=== PATIENT | female | born 1950 | race Caucasian/White ===

== ENCOUNTER 2019-05-24 07:31 | Outpatient (CLI) | payer MEDICARE, SELFPAY ==
--- NOTE | ~2019-05-24 | CT_ITS ---
EXAMINATION: CTA neck EXAM DATE: 05/24/2019 08:05 INDICATION: Dizziness. Left subclavian stenosis. TECHNIQUE: Spiral CTA of the carotid arteries was performed with intravenous injection 100cc of Omnip aque 350. Axial, coronal, sagittal reformatted images reviewed. Additional reformatted images creat ed on dedicated 3-D workstation. NASCET comparable standard used to assess the degree of arterial st enosis. The dose-length product (DLP) for this examination was 474.01 mGy-cm. The exposure was tail ored according to patient size (auto mA exposure control), and iterative reconstruction (ASIR) was us ed as additional dose reduction technique. There is no prior study for comparison. FINDINGS: There is a left subclavian arterial stent, with small amount of intimal thickening suspecte d in side, 30% stenosis. Left vertebral artery arises from subclavian after the stent, is widely rogers nt. The vertebral arteries are essentially codominant (right side is slightly larger and also patent) . There is mild to moderate bilateral carotid atherosclerosis, with 30% stenosis on the right and 20% stenosis on the left. There is pacemaker/AICD device. Cervical spondylosis. Fused C6-C7 vertebral bodies. Small left maxill deborah sinus mucous retention cyst inferiorly. IMPRESSION: 1. Left subclavian origin stent with mild intimal thickening, 30% stenosis. 2. Right carotid bulb 30% stenosis. 3. Left carotid bulb 20% stenosis. Reviewed, dictated and finalized at location B. UET COOK
[2019-05-24 08:00] LABS: Blood Urea Nitrogen 15 mg/dL (8-26); Estimated Glomerular Filt Rate > 60
[2019-05-24 09:35] LABS: Alanine Aminotransferase 21 U/L (4-35); Albumin Level 3.3 g/dL (3.5-5.1); Alkaline Phosphatase 95 U/L (38-126); Aspartate Amino Transferase 22 U/L (14-36); Bilirubin,Total 0.2 mg/dL (0.2-1.3); Blood Urea Nitrogen 15 mg/dL (7-17); Calcium 8.5 mg/dL (8.4-10.2); Carbon Dioxide 28 mmol/L (22-30); Chloride 101 mmol/L (98-107); Estimated Glomerular Filt Rate > 60; Glucose 94 mg/dL (65-105); Potassium 3.5 mmol/L (3.4-5.0); Sodium 139 mmol/L (137-145)
== END 2019-05-24 07:32 | disposition home or self-care (01) ==
LOC: ANHIMG 07:40
PROVIDERS: PCP Family Medicine; Visit Provider Internal Medicine Cardiovascular Disease
DX: I77.1 Stricture of artery (principal); I65.23 Occlusion and stenosis of bilateral carotid arteries; E78.1 Pure hyperglyceridemia
CPT/HCPCS: 36415; 70498; 80053; 84443; Q9967

== ENCOUNTER 2019-11-29 07:15 | Outpatient (CLI) | payer MEDICARE, SELFPAY ==
[2019-11-29 08:11] LABS: Cholesterol 135 mg/dL (0-200); HDL Direct 39 mg/dL; Triglycerides 100 mg/dL (<150)
[2019-11-29 08:22] LABS: LDL Cholesterol Direct 85 mg/dL
== END 2019-11-29 07:16 | disposition home or self-care (01) ==
PROVIDERS: Visit Provider Internal Medicine Cardiovascular Disease
DX: E78.1 Pure hyperglyceridemia (principal)
CPT/HCPCS: 36415; 80061

== ENCOUNTER 2020-04-22 02:32 | Outpatient (CLI) | payer MEDICARE, SELFPAY ==
[2020-04-22 19:47] LABS: SARS-CoV-2 RNA PCR Negative
== END 2020-04-22 02:33 | disposition home or self-care (01) ==
LOC: ANHCOVIDDT 02:32
PROVIDERS: Family Medicine; Visit Provider Specialist
DX: Z01.812 Encounter for preprocedural laboratory examination (principal); Z20.828 Contact with and (suspected) exposure to other viral communicable diseases; R68.89 Other general symptoms and signs
CPT/HCPCS: 87635; C9803; U0003

== ENCOUNTER 2020-04-25 00:57 | Day surgery (SDC) | payer MEDICARE, SELFPAY ==
[2020-04-24 13:36] VITALS: BMI 27.1
[2020-04-25 07:15] VITALS: BP 119/56; PULSE 61; RESP 15; TEMP 36.6; O2SAT 96; BMI 27.1
[2020-04-25 07:23] LABS: Basophils Percent Auto 0.7 % (0.2-1.2); Eosinophils Absolute Auto 0.1 K/mm3 (0-0.3); Eosinophils Percent Auto 2.6 % (0-4.4); Hematocrit 38.6 % (37.0-47.0); Hemoglobin 12.8 g/dL (12.0-15.0); Immature Granulocyte Absolute 0.02 K/mm3 (0.00-0.031); Immature Granulocyte Percent A 0.4 % (0-0.5); Lymphocytes Absolute Auto 1.69 K/mm3 (0.9-3.2); Lymphocytes Percent Auto 31.1 % (18.3-44.2); Mean Corpuscular HGB Conc 33.2 g/dl (32-36); Mean Corpuscular Hemoglobin 29.2 pg (26-34); Mean Corpuscular Volume 88.1 fl (80-100); Monocytes Absolute Auto 0.6 K/mm3 (0.1-0.6); Monocytes Percent Auto 10.3 % (2.6-8.5); Neutrophils Percent Auto 54.9 % (45.5-73.1); Platelet Count Result 259 k/mm3 (150-375); Red Blood Count 4.38 M/mm3 (4.2-5.4); Red Cell Distribution Width 12.9 % (11.5-14.5); White Blood Count 5.4 K/mm3 (4.5-10.0)
[2020-04-25 07:33] LABS: INR 0.9; Prothrombin Time 13.1 Seconds (11.1-14.7)
[2020-04-25 07:36] LABS: Anion Gap 8 mmol/L (8-16); Blood Urea Nitrogen 14 mg/dL (7-17); Calcium 9.2 mg/dL (8.4-10.2); Carbon Dioxide 26 mmol/L (22-30); Chloride 108 mmol/L (98-107); Estimated CRCL calculation 55 ml/min; Estimated Glomerular Filt Rate > 60; Glucose 117 mg/dL (65-105); Potassium 3.9 mmol/L (3.4-5.0); Sodium 142 mmol/L (137-145)
--- NOTE | 2020-04-25 08:34 | WPDMODSED ---
Moderate Sedation Note-Pt Data Patient Data Diagnosis: Pacemaker at [facility] Present Complaint: 70-year-old woman with complete heart block as a dual-chamber pacemaker implanted 10 years ago. Device found to be at [facility] and admitted today for a generator change Procedure to be performed/Plan: Pacemaker generator change Allergies Allergy/AdvReac Type Severity Reaction Status Date / Time Antihistamines - Alkylamine Allergy Unknown Unknown Verified 01/31/20 14:13 codeine Allergy Unknown Unknown Verified 01/31/20 14:13 cyclobenzaprine Allergy Unknown Unknown Verified 01/31/20 14:13 No Known Allergies Allergy Verified 01/31/20 14:13 Home Medications Medication Instructions Recorded Confirmed Type amlodipine 10 mg tablet 10 mg PO DAILY 04/24/19 04/24/20 History aspirin 81 mg tablet,delayed 81 mg PO DAILY 04/24/19 04/24/20 History release atorvastatin 20 mg tablet 20 mg PO DAILY 04/24/19 04/24/20 History carvedilol 12.5 mg tablet 12.5 mg PO Q12H 04/24/19 04/24/20 History duloxetine 60 mg capsule,delayed 60 mg PO DAILY #90 cap 01/31/20 04/24/20 Rx release immune globulin(hum),capr(IgG) 10 % IVPB WEEKLY 01/31/20 01/31/20 History % intravenous solution lisinopril 20 mg tablet 10 mg PO DAILY tablet 01/31/20 04/24/20 History ropinirole 2 mg tablet 2 mg PO .hs #30 tablet 03/04/20 04/24/20 Rx Sedation/Anesthesia: No previous sedation/anesthesia problems (including family history). [facility] Past Medical History Medical History (Updated 04/24/20 @ 10:43 by Love Love) DJD of shoulder Encounter for checking and testing of cardiac pacemaker pulse generator [battery] Osteoarthritis Pacemaker Restless leg syndrome Rotator cuff tear Rotator cuff tendonitis SLAP tear of shoulder Trigger finger Vision abnormalities Surgical History Surgical History H/O heart artery stent History of carpal tunnel repair Family History Family History Mother Family history of malignant neoplasm Family history of malignant neoplasm of breast in first degree relative Sibling Family history of lupus erythematosus Other Family history of lung cancer Social History Social History Smoking status: Former smoker Alcohol intake: current Mod Sed Physical Exam Physical Exam Pre Procedural Exam: Normal: Appearance, Throat, Airway, Lungs, Heart Size, Heart Rate, Heart Rhythm and Extremities Hours since solid foods: 12 Hours since liquid intake: 12 Internal Medicine - PN: Obj Da Vital Signs Vital Signs: Vital Signs - 24 hr 04/25/20 07:15 Temperature 36.6 C Pulse Rate 61 Respiratory Rate 15 Blood Pressure 119/56 L Pulse Oximetry 96 Labs CBC & Chem 7: 04/25/20 07:06 04/25/20 07:06 Labs: Laboratory Results - last 24 hr 04/25/20 04/25/20 04/25/20 07:06 07:06 07:06 WBC 5.4 RBC 4.38 Hgb 12.8 Hct 38.6 MCV 88.1 MCH 29.2 MCHC 33.2 RDW 12.9 Plt Count 259 MPV 10.0 Immature Gran % (Auto) 0.4 Neut % (Auto) 54.9 Lymph % (Auto) 31.1 Morrill % (Auto) 10.3 H Eos % (Auto) 2.6 Baso % (Auto) 0.7 Lymph # (Auto) 1.69 Morrill # (Auto) 0.6 Eos # (Auto) 0.1 Baso # (Auto) 0.0 Abs Immat Gran (auto) 0.02 Absolute Neuts (auto) 3.0 Absolute Nucleated RBC 0.0 Nucleated RBC % 0.0 PT 13.1 INR 0.9 Sodium 142 Potassium 3.9 Chloride 108 H Carbon Dioxide 26 Anion Gap 8 BUN 14 Creatinine 0.80 Estim Creat Clear Calc 55 Estimated GFR > 60 Glucose 117 H Calcium 9.2 ASA Classification/Sedation ASA Classification/Sedation ASA Class: II Emergent: No Risks: Risks, benefits and alternatives explained and patient/family accepted plan for sedation. Patient re-evaluated immediately prior to sedation.
--- NOTE | 2020-04-25 10:13 | ECG_ITS ---
Measurements Intervals [place] Rate: 60 P: 120 TX: 252 QRS: 12 QRSD: 149 T: 13 QT: 498 QTc: 498 Interpretive Statements ELECTRONIC ATRIAL PACEMAKER ELECTRONIC VENTRICULAR PACEMAKER NO FURTHER INTERPRETATION IS POSSIBLE ATYPICAL ECG Electronically Signed On 04-25-2020 14:18:23 YARN WASHER by Fabiano Mobley D.O.
--- NOTE | 2020-04-25 10:15 | WPDCARDPROC ---
Cardiac Cath Procedure Note Date of procedure:: 04/25/20 Performing physician:: Sd Aguilar MD Indication:: pacemaker at [facility] Brief clinical history:: this is a 70-year-old woman scheduled today for pacemaker generator change. She has a chronically implanted dual-chamber device for treatment of complete heart block. She is pacemaker dependent. Her ventricular lead threshold is elevated but stable and chronic at this level. For this reason and because of the Coronavirus pandemic and the desire to discharge her today the decision has been made to perform a simple generator change rather than perform a lead revision which would require hospitalization. Procedure Procedure performed:: Temporary transvenous pacemaker explantation of depleted pulse generator implantation of new pulse generator Sedation/Medication given:: fentanyl 50 mg Versed 4 mg case start time 9:17 a.m. case end time 10:10 a.m. sedation provided by Arabella Woodward RN, trained observer Access site:: right femoral vein for temporary lead Estimated blood loss:: less than 10 cc Procedure note:: patient was brought to the cardiac catheterization lab postabsorptive state the right femoral triangle was prepared and draped in the usual fashion and anesthesia was provided with 1% lidocaine. Following this the femoral vein was punctured and a 6 Gambian vascular sheath was placed. After this I used a 5 Gambian balloon tipped temporary pacing wire to protect the rhythm was placed in the right ventricular apex and good pacing and sensing performance was demonstrated. Following this I broke scrub and recent drug for the thoracic portion of the procedure. The left anterior chest wall and the site of the chronically implanted device was prepped and draped the usual sterile fashion. Anesthesia was provided in this area of 1% lidocaine infiltrated locally. The plasma blade was then used to create an incision over the pocket and to incise the subcutaneous fat as well as the fibrous capsule of the chronically implanted device. The chronically implanted pacemaker in the attached leads were then removed and were visually intact and unremarkable in appearance. The atrial and ventricular leads were disconnected from the device using the torque wrench in implanted into the new generator. The temporary pacemaking device provided good rhythm protection with a backup rate of 50 beats per minute as the device was disconnected in this pacemaker dependent patient. Following this the pocket was irrigated with Ancef infused saline and the device was placed into the chronic pocket. The pocket was then closed in layers using 3 0 Vicryl in her right interrupted fashion for the subcutaneous tissue in 4 0 Vicryl in a running subcuticular fashion for the skin. The wound was dressed with an Aquacel dressing. She received intravenous Ancef prior to the procedure. Patient was taken to the holding area for recovery there were no apparent procedural complications Findings:: the explanted pacemaker device is a [employer] dual-chamber pacemaker [employer] DR RODRIGUEZ 2210. serial number [id number]. the new pacemaker generator is [employer] MRI 2272. serial number [id number]. device is programmed in the DDD mode lower rate limit 60 upper rate limit 115 AV delay 250/ 225 millisecond chronic atrial lead is a [employer] Optisense 1999/46 cm serial number [id number]. originally implanted May 18, 2011 . atrial sensing P-waves is at 3.8 mV threshold 0.5 volts at 0.4 milliseconds impedance 410 Ohms the chronic ventricular lead is a [employer] Tendril STS 2088TC/52cm. there are no R-waves to sense threshold is 1.125 volts at 1.5 milliseconds impedance 690 Ohms Conclusion:: 1. successful implantation of a temporary vent transvenous pacing lead from the right femoral vein to protect the rhythm during generator change in this pacemaker dependent patient 2. successful explant
[2020-04-25 10:45] VITALS: BP 135/62; PULSE 67; RESP 15; TEMP 36.1; O2SAT 95
[2020-04-25 11:00] VITALS: BP 127/59; PULSE 60; RESP 15; O2SAT 97
[2020-04-25 11:15] VITALS: BP 124/59; PULSE 58; RESP 20; O2SAT 95
[2020-04-25 11:30] VITALS: BP 138/64; PULSE 60; RESP 15; O2SAT 98
== END 2020-04-25 12:30 | disposition home or self-care (01) ==
PROVIDERS: Visit Provider Specialist
PROC: 0JPT0PZ Removal of Cardiac Rhythm Related Device from Trunk Subcutaneous Tissue and Fascia, Open Approach (ICD-10-PCS; CPT 33228; principal; 2020-04-25 08:30)
DX: Z45.010 Encounter for checking and testing of cardiac pacemaker pulse generator [battery] (principal); I44.2 Atrioventricular block, complete; G25.81 Restless legs syndrome; Z79.82 Long term (current) use of aspirin; Z95.5 Presence of coronary angioplasty implant and graft; Z87.891 Personal history of nicotine dependence
CPT/HCPCS: 33228; 36415; 80048; 85025; 85610; C1785; C1883; C1894; J0690; J1644; J2250; J3010; J7040

== ENCOUNTER → 2020-10-24 07:50 | Outpatient (CLI) | payer MEDICARE, SELFPAY ==
[2020-10-24 19:23] LABS: SARS-CoV-2 RNA PCR Negative
== END ==
PROVIDERS: Visit Provider Orthopaedic Surgery
DX: Z01.812 Encounter for preprocedural laboratory examination (principal); Z20.822 Contact with and (suspected) exposure to COVID-19
CPT/HCPCS: C9803; U0003; U0005

== ENCOUNTER 2020-10-27 00:39 | Day surgery (SDC) | payer MEDICARE, SELFPAY ==
[2020-10-17 09:16] VITALS: BMI 26.9
[2020-10-27] MEDS: ACETAMINOPHEN 500 MG TABLET 1000 MG PO (12:19)
[2020-10-27] MEDS: LACTATED RINGERS 1,000 ML 30 ML IV CONT (12:35)
[2020-10-27] MEDS: KETOROLAC 15 MG/ML VIAL (*BKC) IV PUSH (12:36)
--- NOTE | 2020-10-27 13:06 | WPDANESEPPF ---
Anes - Initial Pre Proc Eval Procedure: Operation Date: 10/27/20 14:00 Proposed Procedures p Right Third Trigger Finger Release - Cas Saavedra MD Date/Time: 10/27/20 13:06 Surgeon: Cas Saavedra MD Pre Op Diagnosis: right 3rd trigger finger Patient Data Age: 70 Gender: F Height: 1.6 m Weight: 68.8 kg Allergies Allergy/AdvReac Type Severity Reaction Status Date / Time codeine Allergy Mild Nausea Verified 10/27/20 12:16 Antihistamines - Alkylamine AdvReac Mild ANXIOUS/SHRUTHI Verified 10/27/20 12:16 TATED Home Medications Medication Instructions Recorded Confirmed Type aspirin 81 mg tablet,delayed 81 mg PO HS 04/24/19 10/27/20 History release atorvastatin 20 mg tablet 20 mg PO HS 04/24/19 10/27/20 History carvedilol 12.5 mg tablet 12.5 mg PO Q12H 04/24/19 10/27/20 History lisinopril 20 mg tablet 20 mg PO HS tablet 04/30/20 10/27/20 History duloxetine [Cymbalta] 60 mg PO HS 10/17/20 10/27/20 History ropinirole 2 mg PO HS 10/17/20 10/27/20 History Patient hx anesthesia problems: post op nausea/vomiting Family hx anesthesia problems: none PMFSH Past Medical History Medical History (Updated 10/27/20 @ 08:16 by Amauri Cooper DO) Anxiety BMI 27.0-27.9,adult CAD (coronary artery disease) Depression DJD of shoulder Encounter for checking and testing of cardiac pacemaker pulse generator [battery] Hyperlipidemia Hypertension BEATRIZ (obstructive sleep apnea) Osteoarthritis Pacemaker PONV (postoperative nausea and vomiting) Restless leg syndrome Rotator cuff tear Rotator cuff tendonitis SLAP tear of shoulder Vision abnormalities Zoster Surgical History Surgical History (Updated 10/27/20 @ 08:16 by Amauri Cooper DO) H/O heart artery stent x2, 2010 History of carpal tunnel repair Family History Family History Mother Family history of malignant neoplasm Family history of malignant neoplasm of breast in first degree relative Sibling Family history of lupus erythematosus Other Family history of lung cancer Social History Social History Smoking packs per day: 1.5 Smoking cigarettes per day: 30.0 Years smoked: 40 Smoking pack-years: 60.00 Smoking status: Former smoker Smoking end date: 12/04/10 Alcohol intake: never Substance use: never Substance use type: does not use Living arrangements: with family Additional living arrangements comments: HUSB Gender identity (if verbalized by the patient): Female Spiritual care concerns: No Anes - Eval Final PreProcedure Day of Procedure 10/27/20 13:06 Patient weight: overweight Heart: regular rate and rhythm Lungs: clear to auscultation and normal air movement Airway: Mallampati scale class II Neurological: alert and oriented Last oral intake: >/= 8 hours ASA classification: III Emergent: no Anesthetic plan: proceed Anesthesia type and monitoring: general GIVS and standard monitoring Informed Consent: The patient's anesthetic plan and its attendant risks and benefits were discussed with the patient/family/POA. Questions were solicited and answers provided to the satisfaction of the patient/family/POA.
--- NOTE | 2020-10-27 13:15 | WPDHPUPDATE1 ---
History and Physical Update Update Date/Time: 10/27/20 13:15 History and Physical has been reviewed, including an updated exam of the patient. There are NO changes in the patient's condition. Risks, benefits, and alternatives have been discussed and questions answered. Patient agrees to proceed with procedure.
[2020-10-27] MEDS: ceFAZolin 2 GM/D5W 50 ML 2 GM/50 ML BAG IVPB (13:40)
[2020-10-27 14:08] VITALS: BP 110/51; PULSE 60; RESP 12; O2SAT 96
--- NOTE | 2020-10-27 14:11 | P.OP_ITS ---
Procedure Note - Detailed Date of procedure: 10/27/20 Pre-op diagnosis: right 3rd trigger finger Post-op diagnosis: same Procedure performed: Right third trigger finger release Description of procedure: The patient was identified and proper site identified. She was taken to the operating room and transferred to the OR table placing supine taking care to pad the torso and extremities. IV sedation was administered. A nonsterile tourniquet was placed high on the right arm which was prepped and draped in the usual sterile fashion. Several cc of .25 % plain Marcaine was injected into the subcutaneous tissue over the A1 jesus of the right fourth digit. The extremity was exsanguinated and the tourniquet was inflated to 250 mmHg remaining up for about six minutes. A longitudinal incision was made over the A1 jesus. Subcutaneous tissue was bluntly dissected down to the jesus while protecting the neurovascular bundles. The A1 jesus was identified and then transected longitudinally in line with the incision and tendons. The tendons were delivered into the wound verifying the adequacy of the release. Hemostasis was carried out. The wound was irrigated with sterile saline. Skin edges were reapproximated with 4-0 nylon suture. Sterile dressing was applied. Tourniquet was released. She tolerated the procedure well and was transferred back to a cart, then taken to the recovery area in stable condition. There were no known intraoperative complications. Estimated blood loss was negligible. Perioperative antibiotics were administered. Anesthesia: MAC Surgeon: Cas Saavedra MD Mail Processing Associate: Emma Hunter Estimated blood loss (mL): 1 Tourniquet time (min): 6 Drains: No Packing: No Pathology: none sent Complications: No immediate complications Condition: stable Disposition: PACU
[2020-10-27 14:35] VITALS: BP 122/61; PULSE 60; RESP 14
[2020-10-27 14:55] VITALS: BP 150/64; PULSE 60; RESP 14
== END 2020-10-27 15:00 | disposition home or self-care (01) ==
PROVIDERS: Visit Provider Orthopaedic Surgery
PROC: (CPT 26055; principal; 2020-10-27 14:00)
DX: M65.331 Trigger finger, right middle finger (principal); I25.10 Atherosclerotic heart disease of native coronary artery without angina pectoris; I10 Essential (primary) hypertension; E78.5 Hyperlipidemia, unspecified; G47.33 Obstructive sleep apnea (adult) (pediatric); F41.8 Other specified anxiety disorders; M81.0 Age-related osteoporosis without current pathological fracture; G25.81 Restless legs syndrome; Z95.0 Presence of cardiac pacemaker; Z79.82 Long term (current) use of aspirin; Z95.5 Presence of coronary angioplasty implant and graft; Z87.891 Personal history of nicotine dependence
CPT/HCPCS: 26055; A9270; C9803; J0690; J1885; J2250; J2370; J2405; J2704; J3010; J7120; U0003; U0005

== ENCOUNTER 2020-12-19 12:42 | Outpatient (CLI) | payer MEDICARE, SELFPAY ==
[2020-12-19 13:35] LABS: Anion Gap 8 mmol/L (8-16); Blood Urea Nitrogen 26 mg/dL (7-17); Calcium 9.1 mg/dL (8.4-10.2); Carbon Dioxide 34 mmol/L (22-30); Chloride 97 mmol/L (98-107); Estimated Glomerular Filt Rate 45; Glucose 101 mg/dL (65-105); Potassium 4.3 mmol/L (3.4-5.0); Sodium 139 mmol/L (137-145)
== END 2020-12-19 12:43 | disposition home or self-care (01) ==
LOC: ANHLAB 12:46
PROVIDERS: Visit Provider Internal Medicine Cardiovascular Disease
DX: I51.89 Other ill-defined heart diseases (principal)
CPT/HCPCS: 36415; 80048

== ENCOUNTER 2021-01-26 13:46 | Emergency (ER) | payer MEDICARE, SELFPAY ==
[2021-01-26] VITALS (8 sets, daily range): BP systolic 173–205; BP diastolic 69–78; PULSE 66–70; RESP 18; TEMP 36.9; O2SAT 94–99
--- NOTE | ~2021-01-26 | XR_ITS ---
EXAMINATION: XR chest 2V EXAM DATE: 01/26/2021 14:17 INDICATION: Cough and shortness of breath. History COPD, hypertension. TECHNIQUE: Frontal and lateral projections of the chest obtained and reviewed. Comparison is made to prior examination from 09/20/2012. FINDINGS: There is a dual lead pacemaker/AICD seen with leads projecting over the expected locations of the right atrial appendage and right ventricle. There is aortic arteriosclerosis. There is no pn eumothorax suspected. There are no pleural effusions. Cardiomediastinal silhouette is normal. IMPRESSION: No acute cardiopulmonary findings. Reviewed, dictated and finalized at location A.
--- NOTE | 2021-01-26 14:03 | ECG_ITS ---
Measurements Intervals [place] Rate: 61 P: -3 MA: 244 QRS: 97 QRSD: 150 T: 73 QT: 486 QTc: 491 Interpretive Statements ATRIAL SENSE- ELECTRONIC VENTRICULAR PACEMAKER BASELINE WANDER- I, V4 NO FURTHER INTERPRETATION IS POSSIBLE ATYPICAL ECG Electronically Signed On 01-26-2021 14:55:02 CDT by Fabiano Mobley D.O.
[2021-01-26 14:51] LABS: Basophils Percent Auto 0.4 % (0.2-1.2); Eosinophils Absolute Auto 0.2 K/mm3 (0-0.3); Eosinophils Percent Auto 2.4 % (0-4.4); Hematocrit 36.2 % (37.0-47.0); Hemoglobin 11.6 g/dL (12.0-15.0); Immature Granulocyte Absolute 0.02 K/mm3 (0.00-0.031); Immature Granulocyte Percent A 0.3 % (0-0.5); Lymphocytes Absolute Auto 1.09 K/mm3 (0.9-3.2); Lymphocytes Percent Auto 15.7 % (18.3-44.2); Mean Corpuscular Hemoglobin 29.6 pg (26-34); Mean Corpuscular Volume 92.3 fl (80-100); Mean Platelet Volume 10.1 fl (7.4-10.4); Monocytes Absolute Auto 0.5 K/mm3 (0.1-0.6); Monocytes Percent Auto 7.5 % (2.6-8.5); Neutrophils Absolute Auto 5.1 K/mm3 (1.3-6.7); Neutrophils Percent Auto 73.7 % (45.5-73.1); Platelet Count Result 261 k/mm3 (150-375); Red Blood Count 3.92 M/mm3 (4.2-5.4); Red Cell Distribution Width 13.9 % (11.5-14.5)
[2021-01-26 15:11] LABS: Anion Gap 9 mmol/L (8-16); Blood Urea Nitrogen 9 mg/dL (7-17); Calcium 8.8 mg/dL (8.4-10.2); Carbon Dioxide 27 mmol/L (22-30); Chloride 99 mmol/L (98-107); Estimated CRCL calculation 61 ml/min; Estimated Glomerular Filt Rate > 60; Glucose 103 mg/dL (65-110); Potassium 3.6 mmol/L (3.4-5.0); Sodium 135 mmol/L (137-145)
--- NOTE | 2021-01-26 22:49 | ED.URI ---
HPI - URI/Sore Throat General Chief Complaint: Upper Respiratory Infection Stated Complaint: HERE FOR covid TEST PER md, S/T, NAUSEA, LOSS T/S Time Seen by Provider: 01/26/21 21:45 Source: patient Mode of arrival: ambulatory Limitations: no limitations History of Present Illness HPI Narrative: Patient is a 71-year-old female states that her family doctor wants her tested for Covid. Patient states that she has been having cough, sore throat, headache, body aches, shortness of breath, nasal and chest congestion, loss of taste and smell, chills, and nausea that started 3 days ago. Patient states that she is vaccinated. Denies any chest pain, abdominal pain, vomiting, diarrhea or rash. Related Data Home Medications Medication Instructions Recorded Confirmed aspirin 81 mg tablet,delayed 81 mg PO HS 04/24/19 11/11/20 release atorvastatin 20 mg tablet 20 mg PO HS 04/24/19 11/11/20 carvedilol 12.5 mg tablet 12.5 mg PO QID 04/24/19 11/11/20 lisinopril 20 mg tablet 20 mg PO BID tablet 04/30/20 11/11/20 duloxetine [Cymbalta] 60 mg PO HS 10/17/20 11/11/20 ropinirole 2 mg PO HS 10/17/20 11/11/20 Allergies Allergy/AdvReac Type Severity Reaction Status Date / Time codeine Allergy Mild Nausea Verified 01/26/21 20:57 Antihistamines - Alkylamine AdvReac Mild ANXIOUS/SHRUTHI Verified 01/26/21 20:57 TATED Review of Systems Review of Systems: All systems reviewed & are unremarkable except as noted in HPI and below Constitutional: Constitutional: Denies excessive sweating, Denies fever(s), Denies headache(s), Denies lethargy, Denies malaise, Denies weakness and Denies weight loss Eyes: Eyes: Denies blurry vision, Denies change in vision and Denies loss of vision ENT: Denies dizziness, Denies ear discharge, Denies lip swelling, Denies epistaxis, Denies neck pain, Denies throat swelling and Denies tongue swelling Cardiovascular: Cardiovascular: Denies chest pain, Denies chest pain at rest, Denies chest pain with activity, Denies diaphoresis, Denies rapid heart rate, Denies edema, Denies irregular heart rhythm, Denies lightheadedness, Denies palpitations, Denies dyspnea and Denies dyspnea on exertion Respiratory: Respiratory: Denies hemoptysis Gastrointestinal: Gastrointestinal: Denies abdominal pain, Denies melena, Denies hematochezia, Denies diarrhea, Denies vomiting and Denies hematemesis Musculoskeletal: Musculoskeletal: Denies abnormal gait, Denies deformity, Denies joint swelling, Denies limited range of motion, Denies neck pain and Denies numbness Neurologic: Denies Abnormal speech present, Denies abnormal gait, Denies confusion, Denies dizziness, Denies headache(s), Denies focal weakness, Denies loss of vision, Denies numbness, Denies Other visual disturbances, Denies Sensory deficit (Neuro) and Denies weakness Psychiatric: Psychiatric: Denies confusion, Denies depression, Denies auditory hallucinations, Denies homicidal ideation and Denies suicidal ideation Endocrine: Endocrine: Denies cold intolerance, Denies excessive sweating, Denies fatigue, Denies heat intolerance and Denies palpitations Hematologic/Lymphatic: Hematologic/Lymphatic: Denies easy bleeding and Denies easy bruising Allergic/Immunologic: Allergic/Immunologic: Denies lip swelling, Denies throat swelling and Denies tongue swelling PMFSH Past Medical History Medical History Anxiety BMI 27.0-27.9,adult CAD (coronary artery disease) Depression DJD of shoulder Encounter for checking and testing of cardiac pacemaker pulse generator [battery] Hyperlipidemia Hypertension BEATRIZ (obstructive sleep apnea) Osteoarthritis Pacemaker PONV (postoperative nausea and vomiting) Restless leg syndrome Rotator cuff tear Rotator cuff tendonitis SLAP tear of shoulder Vision abnormalities Zoster Surgical History Surgical History H/O heart artery stent x2, 2010 History
[2021-01-26 22:59] LABS: EDCOVIDSCREEN Negative (Negative)
== END 2021-01-26 23:54 | disposition home or self-care (01) ==
PROVIDERS: Family Medicine; Emergency Provider Emergency Medicine; PCP Family Medicine
DX: J06.9 Acute upper respiratory infection, unspecified (principal); I10 Essential (primary) hypertension; Z20.822 Contact with and (suspected) exposure to COVID-19; I25.10 Atherosclerotic heart disease of native coronary artery without angina pectoris; E78.5 Hyperlipidemia, unspecified; G47.33 Obstructive sleep apnea (adult) (pediatric); G25.81 Restless legs syndrome; F41.9 Anxiety disorder, unspecified; F32.9 Major depressive disorder, single episode, unspecified; M19.90 Unspecified osteoarthritis, unspecified site; Z95.0 Presence of cardiac pacemaker; M19.019 Primary osteoarthritis, unspecified shoulder; Z95.5 Presence of coronary angioplasty implant and graft; Z87.891 Personal history of nicotine dependence; Z79.82 Long term (current) use of aspirin
CPT/HCPCS: 36415; 71046; 80048; 85025; 87426; 93005; 99284; C9803

== ENCOUNTER → 2021-01-29 03:16 | Outpatient (CLI) | payer MEDICARE, SELFPAY ==
[2021-01-29 20:01] LABS: SARS-CoV-2 RNA PCR Negative
== END ==
PROVIDERS: PCP Family Medicine; Visit Provider Physician Assistant Medical
DX: R05 Cough (principal); Z20.822 Contact with and (suspected) exposure to COVID-19
CPT/HCPCS: C9803; U0003; U0005

== ENCOUNTER 2021-06-15 01:26 | Day surgery (SDC) | payer MEDICARE, SELFPAY ==
[2021-06-09 15:19] VITALS: BMI 27.1
--- NOTE | 2021-06-09 15:26 | PC.NURSE ---
Report to the Outpatient Waiting Room, entrance under the green pavilion located off [facility], at time __1200_ on date _06-15-2021_. OR Time: __1400__. - You and your visitor will be asked a series of questions to screen for COVID 19 for your protection. - A mask is required within the hospital. - No visitor is allowed at this time. Preoperative COVID Testing Requirements: No COVID Test needed if: (proof is required; if not received patient will have Rapid Test prior to entry) - Patient has received COVID Vaccine at least 14 days prior to procedure date or - Patient has positive COVID test result within last 90 days of surgery date. COVID Test needed if above criteria is not met If not COVID vaccinated a COVID test must be conducted within 72 hours of surgery and patient is asked to isolate self from time of testing until procedure. You will go to the [facility] for your COVID testing. The [facility] is located at the corner of [address] from [facility]. You will only be called if COVID results are positive and your surgeon may reschedule your elective surgery date. Patients may have clear liquids (water, carbonated beverages, clear teas, apple juice) until 3 hours prior to surgery with a maximum of 20 ounces. - No food from midnight until time of surgery - Infants may have breast milk until 4 hours before surgery, infant formula 6 hours prior to surgery. - Children will be allowed to drink immediately following surgery. If applicable, please bring a bottle or sippy cup to assist with drinking. Juice, water, soda, and popsicles are readily available. For infants on formula, please bring formula the day of surgery. Pacifiers are allowed. Take the following medications with a SIP of water the morning of surgery: ____Carvidilol Medications to discontinue per physician Date to take last dose Please no make-up, nail togolese, hairspray, perfume, deodorant, or body powder the day of surgery. No jewelry (including any body piercings) or valuables the day of surgery, leave them at home. Please take a shower or bath the night before, or the morning of, surgery with an antibacterial soap. Wear comfortable, loose fitting clothing. Children are encouraged to wear pajamas. - Jewelry must be removed prior to entering the operating room. Rings and piercings that are not removed may be cut off. - The hospital will not accept responsibility for valuables. - Please leave all valuables, including medications, at home the day of surgery. If you are going home after surgery, a licensed subway train driver must drive you home. - NO public transportation without another adult. - We recommend that an adult stay with you for 24 hours following discharge. - We also recommend that you do not drive, make important decision, drink alcoholic beverages, or take any drugs that were not prescribed by your health care provider for at least 24 hours after your discharge time. For Pediatric surgeries, we recommend two adults accompany the child home (only one inside the building at this time). Follow any additional instructions given to you from your surgeon. Telephone instructions given to ____Patient and asked if any additional questions and then verbalized understanding. Patient advised to call surgeon office or pre surgery nurse liaison [phone] if any additional questions.
[2021-06-15] MEDS: LACTATED RINGERS 1,000 ML 30 ML IV CONT (10:45)
[2021-06-15 11:00] VITALS: BP 182/61; PULSE 59; RESP 16; TEMP 36.8; O2SAT 99
[2021-06-15] MEDS: ACETAMINOPHEN 500 MG TABLET 1000 MG PO (11:06)
[2021-06-15] MEDS: KETOROLAC 15 MG/ML VIAL (*BKC) IV PUSH (11:08)
--- NOTE | 2021-06-15 11:58 | WPDANESEPPF ---
Anes - Initial Pre Proc Eval Procedure: Operation Date: 06/15/21 12:30 Proposed Procedures p Right Index Trigger Finger Release - Cas Saavedra MD Date/Time: 06/15/21 11:58 Surgeon: Cas Saavedra MD Pre Op Diagnosis: right index trigger finger Patient Data Age: 71 Gender: F Height: 1.6 m Weight: 70 kg Last Vital Signs Temp 36.8 C 06/15/21 11:00 Pulse 59 L 06/15/21 11:00 Resp 16 06/15/21 11:00 BP 182/61 H 06/15/21 11:00 Pulse Ox 99 06/15/21 11:00 Allergies Allergy/AdvReac Type Severity Reaction Status Date / Time codeine Allergy Mild Nausea Verified 06/15/21 11:29 Antihistamines - Alkylamine AdvReac Mild ANXIOUS/SHRUTHI Verified 06/15/21 11:29 TATED Home Medications Medication Instructions Recorded Confirmed Type aspirin 81 mg tablet,delayed 81 mg PO HS 04/24/19 06/09/21 History release atorvastatin 20 mg tablet 20 mg PO HS 04/24/19 06/09/21 History carvedilol 12.5 mg tablet 25 mg PO BID 04/24/19 06/15/21 History lisinopril 20 mg tablet 20 mg PO BID tablet 04/30/20 06/09/21 History ropinirole 2 mg PO HS 10/17/20 06/09/21 History duloxetine 60 mg capsule,delayed 60 mg PO HS #90 cap 03/10/21 06/09/21 Rx release Patient hx anesthesia problems: none Family hx anesthesia problems: none Results Review: All pre-operative results and documents have been reviewed as part of the pre-operative evaluation. [facility] Past Medical History Medical History (Updated 05/27/21 @ 09:34 by PETER Cardenas) Anxiety BMI 27.0-27.9,adult CAD (coronary artery disease) Depression DJD of shoulder Encounter for checking and testing of cardiac pacemaker pulse generator [battery] Hyperlipidemia Hypertension BEATRIZ (obstructive sleep apnea) Osteoarthritis Pacemaker PONV (postoperative nausea and vomiting) Restless leg syndrome Rotator cuff tear Rotator cuff tendonitis SLAP tear of shoulder Vision abnormalities Zoster Surgical History Surgical History (Updated 05/27/21 @ 09:34 by PETER Cardenas) H/O heart artery stent , 2010 History of carpal tunnel repair Trigger finger, right middle finger Right third trigger finger release October 27, 2020 Family History Family History Mother Family history of malignant neoplasm Family history of malignant neoplasm of breast in first degree relative Sibling Family history of lupus erythematosus Other Family history of lung cancer Social History Social History Smoking packs per day: 1 Smoking cigarettes per day: 20.0 Years smoked: 40 Smoking pack-years: 40.00 Smoking status: Former smoker Tobacco type: cigarettes Smoking end date: 06/09/11 Alcohol intake: never Alcohol use details: social drinker, 1 drink per month Substance use: never Substance use type: does not use Living arrangements: with family Additional living arrangements comments: [facility] Gender identity (if verbalized by the patient): Female Spiritual care concerns: No Anes - Eval Final PreProcedure Day of Procedure 06/15/21 11:58 Patient weight: overweight Heart: regular rate and rhythm Lungs: clear to auscultation and normal air movement Airway: Mallampati scale class II Neurological: alert and oriented Last oral intake: >/= 8 hours ASA classification: III Emergent: no Anesthetic plan: proceed Anesthesia type and monitoring: general GIVS and standard monitoring Results Review: All pre-operative results and documents have been reviewed as part of the pre-operative evaluation. Informed Consent: The patient's anesthetic plan and its attendant risks and benefits were discussed with the patient/family/POA. Questions were solicited and answers provided to the satisfaction of the patient/family/POA.
--- NOTE | 2021-06-15 12:01 | WPDHPUPDATE1 ---
History and Physical Update Update Date/Time: 06/15/21 12:01 History and Physical has been reviewed, including an updated exam of the patient. There are NO changes in the patient's condition. Risks, benefits, and alternatives have been discussed and questions answered. Patient agrees to proceed with procedure.
[2021-06-15] MEDS: ceFAZolin 2 GM/D5W 50 ML 2 GM/50 ML BAG IVPB (12:21)
[2021-06-15] MEDS: BUPIVACAINE HCL 0.25% PF 30 ML VIAL INFILTRATE (12:41)
--- NOTE | 2021-06-15 12:55 | W.PM.PROC2 ---
Procedure Note - Detailed Date of Procedure 06/15/21 Pre-op Diagnosis right index trigger finger Post-op Diagnosis same Procedure Performed right index trigger finger release Surgeon Cas Saavedra MD Anesthesia MAC and local Description of Procedure The patient was identified and proper site identified. She was taken to the operating room and transferred to the OR table placing supine taking care to pad the torso and extremities. She was administered IV sedation. A nonsterile tourniquet was placed high on the right arm which was prepped and draped in the usual sterile fashion. Several cc of .25 % plain Marcaine was injected into the subcutaneous tissue over the A1 jesus of the right second digit. The extremity was exsanguinated and the tourniquet was inflated to 200 mmHg remaining up for about for minutes. A longitudinal incision was made over the A1 jesus. Subcutaneous tissue was bluntly dissected down to the jesus while protecting the neurovascular bundles. The A1 jesus was identified and then transected longitudinally in line with the incision and tendons. The tendons were delivered into the wound verifying the adequacy of the release. Hemostasis was carried out. The wound was irrigated with sterile saline. Skin edges were reapproximated with 4-0 nylon suture. Sterile dressing was applied. Tourniquet was released. She tolerated the procedure well and was transferred back to a cart, then taken to the recovery area in stable condition. There were no known intraoperative complications. Estimated blood loss was negligible. Perioperative antibiotics were administered. Estimated Blood Loss 1 Tourniquet Time 4 Drains No Packing No Pathology none sent Complications No immediate complications Condition stable Disposition PACU
[2021-06-15 13:00] VITALS: BP 114/55; PULSE 60; RESP 16; O2SAT 96
[2021-06-15 13:30] VITALS: BP 117/84; PULSE 59; RESP 16
[2021-06-15 13:47] VITALS: BP 145/57; PULSE 58; RESP 16
== END 2021-06-15 14:11 | disposition home or self-care (01) ==
PROVIDERS: PCP Family Medicine; Visit Provider Orthopaedic Surgery
PROC: (CPT 26055; principal; 2021-06-15 12:30)
DX: M65.321 Trigger finger, right index finger (principal); Z79.82 Long term (current) use of aspirin; I25.10 Atherosclerotic heart disease of native coronary artery without angina pectoris; F41.8 Other specified anxiety disorders; E78.5 Hyperlipidemia, unspecified; I10 Essential (primary) hypertension; G47.33 Obstructive sleep apnea (adult) (pediatric); M19.90 Unspecified osteoarthritis, unspecified site; Z95.0 Presence of cardiac pacemaker; G25.81 Restless legs syndrome; Z87.891 Personal history of nicotine dependence; Z95.5 Presence of coronary angioplasty implant and graft
CPT/HCPCS: 26055; A9270; J0690; J1100; J1885; J2250; J2405; J2704; J3010; J7120

== ENCOUNTER 2021-09-18 09:14 | Outpatient (CLI) | payer MEDICARE, SELFPAY ==
[2021-09-18 09:49] LABS: Basophils Percent Auto 0.6 % (0.2-1.2); Eosinophils Absolute Auto 0.3 K/mm3 (0-0.3); Eosinophils Percent Auto 4.3 % (0-4.4); Hematocrit 39.7 % (37.0-47.0); Immature Granulocyte Absolute 0.03 K/mm3 (0.00-0.031); Immature Granulocyte Percent A 0.5 % (0-0.5); Lymphocytes Absolute Auto 2.14 K/mm3 (0.9-3.2); Lymphocytes Percent Auto 32.6 % (18.3-44.2); Mean Corpuscular HGB Conc 32.7 g/dl (32-36); Mean Corpuscular Volume 91.7 fl (80-100); Mean Platelet Volume 10.4 fl (7.4-10.4); Monocytes Absolute Auto 0.7 K/mm3 (0.1-0.6); Monocytes Percent Auto 10.8 % (2.6-8.5); Neutrophils Absolute Auto 3.4 K/mm3 (1.3-6.7); Neutrophils Percent Auto 51.2 % (45.5-73.1); Platelet Count Result 270 k/mm3 (150-375); Red Blood Count 4.33 M/mm3 (4.2-5.4); Red Cell Distribution Width 13.5 % (11.5-14.5); White Blood Count 6.6 K/mm3 (4.5-10.0)
[2021-09-18 10:01] LABS: Alanine Aminotransferase 18 U/L (4-35); Albumin Level 4.4 g/dL (3.5-5.1); Alkaline Phosphatase 110 U/L (38-126); Anion Gap 7 mmol/L (8-16); Aspartate Amino Transferase 27 U/L (14-36); Bilirubin,Total 0.6 mg/dL (0.2-1.3); Blood Urea Nitrogen 17 mg/dL (7-17); Calcium 8.5 mg/dL (8.4-10.2); Carbon Dioxide 26 mmol/L (22-30); Chloride 105 mmol/L (98-107); Creatine Kinase 49 U/L (30-135); Estimated Glomerular Filt Rate > 60; Glucose 103 mg/dL (65-110); Potassium 3.7 mmol/L (3.4-5.0); Sodium 138 mmol/L (137-145)
[2021-09-18 10:34] LABS: Iron 69 ug/dL (37-170)
[2021-09-18 10:44] LABS: Percent Iron Saturation 18 % (20-50)
[2021-09-18 10:55] LABS: Erythrocyte Sedimentation Rate 18 mm/hr (0-20)
== END 2021-09-18 09:15 | disposition home or self-care (01) ==
LOC: ANHLAB 09:16
PROVIDERS: PCP Family Medicine; Visit Provider Family Medicine
DX: I10 Essential (primary) hypertension (principal); D68.69 Other thrombophilia; L65.9 Nonscarring hair loss, unspecified; M79.10 Myalgia, unspecified site; E78.2 Mixed hyperlipidemia
CPT/HCPCS: 36415; 80048; 80076; 82550; 82728; 83540; 83550; 84443; 85025; 85652

== ENCOUNTER 2021-10-27 08:07 | Outpatient (CLI) | payer MEDICARE, SELFPAY ==
[2021-10-27 08:37] LABS: Creatine Kinase 50 U/L (30-135)
[2021-10-27 08:40] LABS: Rheumatoid Factor < 8.6 IU/ML (<12)
[2021-10-27 08:46] LABS: Erythrocyte Sedimentation Rate 13 mm/hr (0-20)
[2021-10-29 13:44] LABS: CMV IgM Antibody <30.00 AU/mL (<30.00)
[2021-10-30 17:40] LABS: CMV IgG Antibody <0.60 U/mL (<0.60)
[2021-10-31 06:33] LABS: Aldolase 6.3 U/L (<=8.1)
[2021-10-31 12:20] LABS: EBV Nuclear Ab Interpretation Past; EBV Virus Capsid Ag IgG Ab >750.00 U/mL (<18.00); EBV Virus Capsid Ag IgM Ab <36.00 U/mL (<36.00)
== END 2021-10-27 08:08 | disposition home or self-care (01) ==
LOC: ANHLAB 08:08
PROVIDERS: PCP Family Medicine; Visit Provider Family Medicine
DX: M79.10 Myalgia, unspecified site (principal); M25.50 Pain in unspecified joint; R53.83 Other fatigue
CPT/HCPCS: 36415; 82085; 82550; 85652; 86430; 86644; 86645; 86664; 86665

== ENCOUNTER 2022-01-13 14:54 | Emergency (ER) | payer MEDICARE, SELFPAY ==
--- NOTE | ~2022-01-13 | CT_ITS ---
EXAMINATION: CT brain wo con DATE: 01/13/2022 17:41 INDICATION: Headache. History of hypertension. TECHNIQUE: Computed tomography (CT) of the head was performed without intravenous contrast. The mA wa s adjusted according to patient size. Iterative reconstruction technique was employed. Exam dose: 60 5.33 mGy-cm total exam DLP. COMPARISON: 11/29/2012 CT brain FINDINGS: There is cerebral atherosclerosis including prominent bilateral carotid siphon internal car otid artery calcifications. There is nonspecific diminished attenuation of the cerebral white matter, likely due to chronic small vessel ischemic changes. No intracranial mass lesion or hemorrhage or cerebrovascular accident. No midline shift or mass effec t. Normal ventricular size. No evidence of bilateral ocular lens replacements. No subdural or epidura l hematoma. No fracture or bone destruction of the cranial vault. Mastoid air cells and included paranasal sinuse s are normally developed and aerated. IMPRESSION: Cerebral atherosclerosis and chronic small vessel ischemic changes of the cerebral white matter No acute intracranial finding Reviewed, dictated and finalized at Location [facility]. Reviewed, dictated and finalized at location B.
--- NOTE | ~2022-01-13 | XR_ITS ---
EXAMINATION: XR chest 2V Exam Date/Time: 01/13/2022 15:37 CDT HISTORY: palpitations,mid sternal chest pain x3days. hx htn,cad,meri Comparison: 01/26/2021. RESULT: Lines, tubes, and devices: Left chest pacer with intact leads. Lungs and pleura: Clear. Cardiomediastinal silhouette: Stable. Other: No acute osseous or upper abdominal finding. IMPRESSION: No acute cardiopulmonary process. Reviewed, dictated and finalized at location K.
[2022-01-13 15:08] VITALS: BP 170/81; PULSE 74; RESP 18; TEMP 36.8; O2SAT 100
--- NOTE | 2022-01-13 15:08 | ECG_ITS ---
Measurements Intervals [place] Rate: 77 P: 45 MT: 269 QRS: 85 QRSD: 168 T: 75 QT: 419 QTc: 475 Interpretive Statements NORMAL SINUS RHYTHM POSSIBLE ELECTRONIC VENTRICULAR PACEMAKER COMPARED TO ECG 01/26/2021 14:28:58 NO SIGNIFICANT CHANGES Electronically Signed On 01-13-2022 18:38:00 CDT by Lacie Olmos M.D.
[2022-01-13 15:26] LABS: Basophils Absolute Auto 0.1 K/mm3 (0.0-0.1); Basophils Percent Auto 0.7 % (0.2-1.2); Eosinophils Absolute Auto 0.2 K/mm3 (0-0.3); Eosinophils Percent Auto 2.6 % (0-4.4); Hematocrit 40.5 % (37.0-47.0); Immature Granulocyte Absolute 0.04 K/mm3 (0.00-0.031); Immature Granulocyte Percent A 0.5 % (0-0.5); Lymphocytes Absolute Auto 2.44 K/mm3 (0.9-3.2); Lymphocytes Percent Auto 32.3 % (18.3-44.2); Mean Corpuscular HGB Conc 32.1 g/dl (32-36); Mean Corpuscular Hemoglobin 29.9 pg (26-34); Mean Corpuscular Volume 93.1 fl (80-100); Mean Platelet Volume 10.4 fl (7.4-10.4); Monocytes Absolute Auto 0.6 K/mm3 (0.1-0.6); Monocytes Percent Auto 7.4 % (2.6-8.5); Neutrophils Absolute Auto 4.3 K/mm3 (1.3-6.7); Neutrophils Percent Auto 56.5 % (45.5-73.1); Platelet Count Result 261 k/mm3 (150-375); Red Blood Count 4.35 M/mm3 (4.2-5.4); Red Cell Distribution Width 13.2 % (11.5-14.5); White Blood Count 7.6 K/mm3 (4.5-10.0)
[2022-01-13 15:32] LABS: Alanine Aminotransferase 25 U/L (6-35); Albumin Level 4.2 g/dL (3.5-5.1); Alkaline Phosphatase 94 U/L (38-126); Anion Gap 8 mmol/L (8-16); Aspartate Amino Transferase 28 U/L (14-36); Bilirubin,Total 0.5 mg/dL (0.2-1.3); Blood Urea Nitrogen 19 mg/dL (7-17); Calcium 9.4 mg/dL (8.4-10.2); Carbon Dioxide 28 mmol/L (22-30); Chloride 102 mmol/L (98-107); Estimated CRCL calculation 61 ml/min; Estimated Glomerular Filt Rate > 60; Glucose 106 mg/dL (65-110); Lipase 128 U/L (23-300); Potassium 3.9 mmol/L (3.4-5.0); Sodium 138 mmol/L (137-145)
[2022-01-13 15:38] LABS: INR 1.1; Prothrombin Time 13.7 Seconds (11.1-14.7)
[2022-01-13 15:39] LABS: Partial Thromboplastin Time 26.6 SECONDS (22.3-36.8)
[2022-01-13 15:43] LABS: Troponin I < 0.012 ng/mL (0.000-0.034)
--- NOTE | 2022-01-13 17:03 | ED.ARRPALP ---
HPI - Arrhythmia/Palpitations General Chief Complaint: Arrhythmia/Palpitations <Addis Costello MD - Last Filed: 01/13/22 18:50> Stated Complaint: htn, palpitations <Addis Costello MD - Last Filed: 01/13/22 18:50> Time Seen by Provider: 01/13/22 16:53 <Addis Costello MD - Last Filed: 01/13/22 18:50> History of Present Illness HPI narrative: pt says last couple of days noticed heart fluttering no cp some mild sob and also alvarez and says left foot gets cold at times. no f/nv/d/uri/abd pain/urine chagnes/neck or back pain/loc/trauma or med changes on lisinopril 40mg daily for yrs. says h/o neuropathy and chronic back issues but no new pains and says foot cold on/off not now is new. <Addis Costello MD - Last Filed: 01/13/22 18:50> Related Data Home Medications: Home Medications Medication Instructions Recorded Confirmed aspirin 81 mg tablet,delayed 81 mg PO HS 04/24/19 10/13/21 release carvedilol 12.5 mg tablet 25 mg PO BID 04/24/19 10/13/21 lisinopril 20 mg tablet 20 mg PO BID 04/30/20 10/13/21 atorvastatin 40 mg tablet 40 mg PO DAILY 09/18/21 10/13/21 <Addis Costello MD - Last Filed: 01/13/22 18:50> Allergies/Adverse Reactions: Allergies Allergy/AdvReac Type Severity Reaction Status Date / Time codeine Allergy Mild Nausea Verified 10/13/21 07:34 Antihistamines - Alkylamine AdvReac Mild ANXIOUS/SHRUTHI Verified 10/13/21 07:34 TATED <Addis Costello MD - Last Filed: 01/13/22 18:50> Review of Systems Constitutional: Comments: CONSTITUTIONAL: Denies fever, chills, or sweats. has headaches EYES: Denies visual changes, redness, or discharge. ENT: Denies rhinorrhea, congestion, sore throat, or otalgia. CARDIOVASCULAR: Denies chest pain, or edema. has palpitations RESPIRATORY: Denies cough or dyspnea. GASTROINTESTINAL: Denies abdominal pain, nausea, vomiting, or diarrhea. GENITOURINARY: Denies dysuria or hematuria. SKIN: Denies rash or itching. MUSCULOSKELETAL: Denies back pain, joint pain, or myalgia. NEUROLOGIC: Denies headache, numbness, or weakness. feels like left foot goes cold on/off PSYCHIATRIC: Denies anxiety or depression. <Addis Costello MD - Last Filed: 01/13/22 18:50> [facility] Past Medical History Medical History: Medical History (Updated 01/14/22 @ 00:00 by Background Daemon) Acute bronchitis due to other specified organisms Anxiety Arthralgia Autoimmune disorder BMI 27.0-27.9,adult CAD (coronary artery disease) Changes in vision CVID (common variable immunodeficiency) Depression Dietary counseling and surveillance (11/09/16) DJD of shoulder Elevated glucose Encounter for checking and testing of cardiac pacemaker pulse generator [battery] Encounter for immunization (03/23/18) Essential (primary) hypertension (10/09/18) Former smoker Hyperlipidemia Hypertension IgG deficiency Injury of other nerves at ankle and foot level, right leg, initial encounter Injury of other nerves at shoulder and upper arm level, right arm, initial encounter Lumbar back pain Myalgia Neuropathy Ocular migraine BEATRIZ (obstructive sleep apnea) Osteoarthritis Pacemaker Pain in right upper arm PONV (postoperative nausea and vomiting) Restless leg syndrome Rotator cuff tear Rotator cuff tendonitis Screening for lipid disorders Shortness of breath SLAP tear of shoulder Syncope and collapse Vision abnormalities Zoster <Addis Costello MD - Last Filed: 01/13/22 18:50> Surgical History Surgical History: Surgical History H/O heart artery stent x2, 2010 History of carpal tunnel repair Trigger finger, right middle finger Right third trigger finger release October 27, 2020 <Addis Costello MD - Last Filed: 01/13/22 18:50> Family History Family History: Family History Mother Family history of malignant neoplasm Family history of maligna
[2022-01-13] MEDS: hydrALAZINE HCL 20 MG/ML VIAL 10 MG IV PUSH (17:48)
--- NOTE | 2022-01-13 18:38 | ECG_ITS ---
Measurements Intervals [place] Rate: 78 P: 50 MO: 269 QRS: 74 QRSD: 148 T: 64 QT: 439 QTc: 503 Interpretive Statements NORMAL SINUS RHYTHM POSSIBLE ELECTRONIC VENTRICULAR PACEMAKER ABNORMAL RHYTHM ECG COMPARED TO ECG 01/13/2022 14:59:15 NO SIGNIFICANT CHANGES Electronically Signed On 01-13-2022 18:51:17 CDT by Lacie Olmos M.D.
[2022-01-13] MEDS: lisinopriL 20 MG TABLET 40 MG PO (20:05)
[2022-01-13 20:14] VITALS: BP 166/76; PULSE 78; RESP 18; O2SAT 99
== END 2022-01-13 20:15 | disposition home or self-care (01) ==
PROVIDERS: Emergency Provider Emergency Medicine; PCP Family Medicine
DX: R00.2 Palpitations (principal); I10 Essential (primary) hypertension; R51.9 Headache, unspecified; F41.9 Anxiety disorder, unspecified; I25.10 Atherosclerotic heart disease of native coronary artery without angina pectoris; M19.90 Unspecified osteoarthritis, unspecified site; G47.30 Sleep apnea, unspecified; Z95.0 Presence of cardiac pacemaker; Z79.82 Long term (current) use of aspirin; R06.02 Shortness of breath
CPT/HCPCS: 36415; 70450; 71046; 80053; 83690; 84443; 84484; 85025; 85610; 85730; 93005; 96374; 96375; 99284; A9270; J0131; J0360

== ENCOUNTER 2022-07-08 12:35 | Outpatient (CLI) | payer MEDICARE, SELFPAY ==
--- NOTE | ~2022-07-08 | XR_ITS ---
Left Hand Technique: PA and lateral views were obtained. Clinical History: Osteoarthritis Findings: No acute fracture or dislocation is seen. Osseous alignment is anatomic. Mild degenerative change of the first CMC joint noted. Minimal degenerative change of the interphalangeal joint of the thumb and the second and fifth DIP joints.. Soft tissues are unremarkable. Impression: Mild degenerative changes, as detailed above. Reviewed, dictated and finalized at location . S SAGGER Impression: Mild degenerative changes, as detailed above.
--- NOTE | ~2022-07-08 | XR_ITS ---
Right Hand Technique: PA and lateral views were obtained. Clinical History: Arthritis Findings: No acute fracture or dislocation is seen. Osseous alignment is anatomic. There is mild dege nerative change of the interphalangeal joint of the thumb and the DIP joints. Soft tissues are unrema rkable. Impression: Mild degenerative changes, as detailed above. Reviewed, dictated and finalized at location M. RIGGER Impression: Mild degenerative changes, as detailed above.
== END 2022-07-08 12:36 | disposition home or self-care (01) ==
PROVIDERS: PCP Family Medicine; Visit Provider Nurse Practitioner Family
DX: M19.041 Primary osteoarthritis, right hand (principal); M19.042 Primary osteoarthritis, left hand
CPT/HCPCS: 73120

== ENCOUNTER 2022-08-02 01:19 | Day surgery (SDC) | payer MEDICARE, SELFPAY ==
--- NOTE | 2022-07-30 09:34 | PC.NURSE ---
Report to the Outpatient Waiting Room, entrance under the green pavilion located off [facility], at time __1130 on date 08/02/22 . Planned Procedure Time: _1330 . Time changes happen often and if your time is changed the preop area will call you the afternoon before. - You and your visitor will be asked to self-screen and do not enter if you have any COVID symptoms. - Only one visitor is requested with a max of two and NO children visitors are allowed at this time. - The patient visitor may be requested to leave or wait in car when not with patient due to distancing restrictions. - A mask is optional within the hospital at this time. Patients may have clear liquids (water, carbonated beverages, clear teas, apple juice) until 3 hours prior to surgery with a maximum of 20 ounces. - No food from midnight until time of surgery - Infants may have breast milk until 4 hours before surgery, infant formula 6 hours prior to surgery. - Children will be allowed to drink immediately following surgery. If applicable, please bring a bottle or sippy cup to assist with drinking. Juice, water, soda, and popsicles are readily available. For infants on formula, please bring formula the day of surgery. Pacifiers are allowed. Take the following medications with a SIP of water the morning of surgery: ___CARVEDILOL DO NOT STOP ANY OF YOUR OTHER PRESCRIPTION MEDICATIONS PRIOR TO SURGERY ?EXCEPT THE FOLLOWING Medications to discontinue per physician NONE Date to take last dose Please no make-up, nail german, hairspray, perfume, deodorant, or body powder the day of surgery. No jewelry (including any body piercings) or valuables the day of surgery, leave them at home. Please take a shower or bath the night before, or the morning of, surgery with an antibacterial soap. Wear comfortable, loose fitting clothing. Children are encouraged to wear pajamas. - Jewelry must be removed prior to entering the operating room. Rings and piercings that are not removed may be cut off. - The hospital will not accept responsibility for valuables. - Please leave all valuables, including medications, at home the day of surgery. If you are going home after surgery, a licensed star route mail driver must drive you home. - NO public transportation without another adult if you receive anesthesia. - We recommend that an adult stay with you for 24 hours following discharge. - We also recommend that you do not drive, make important decision, drink alcoholic beverages, or take any drugs that were not prescribed by your health care provider for at least 24 hours after your discharge time. For Pediatric surgeries, we recommend two adults accompany the child home. Follow any additional instructions given to you from your surgeon. If you or anyone in your household have experienced Covid symptoms in the past week, please notify your surgeon or the nurse liaison at the phone number below for possible testing. Telephone instructions given to __PATIENT and asked if any additional questions and then verbalized understanding. Patient advised to call surgeon office or pre surgery nurse liaison [phone] if any additional questions.
[2022-07-30 09:40] VITALS: BMI 27.1
[2022-08-02] MEDS: ACETAMINOPHEN 500 MG TABLET 1000 MG PO (12:00)
[2022-08-02] MEDS: LACTATED RINGERS 1,000 ML 30 ML IV CONT (12:20)
[2022-08-02 12:24] VITALS: BP 144/49; PULSE 60; RESP 16; TEMP 36.7; O2SAT 98
--- NOTE | 2022-08-02 12:37 | WPDANESEPPF ---
Anes - Initial Pre Proc Eval Procedure: Operation Date: 08/02/22 13:30 Proposed Procedures p Right Fourth Trigger Finger Release - Cas Saavedra MD Date/Time: 08/02/22 12:37 Surgeon: Cas Saavedra MD Pre Op Diagnosis: right 4th trigger finger Patient Data Age: 72 Gender: F Height: 1.6 m Weight: 69.5 kg Last Vital Signs Temp 36.7 C 08/02/22 12:24 Pulse 60 08/02/22 12:24 Resp 16 08/02/22 12:24 BP 144/49 H 08/02/22 12:24 Pulse Ox 98 08/02/22 12:24 O2 Del Method Room Air 08/02/22 12:24 Allergies Allergy/AdvReac Type Severity Reaction Status Date / Time codeine Allergy Mild Nausea Verified 07/30/22 09:20 Antihistamines - Alkylamine AdvReac Mild ANXIOUS/SHRUTHI Verified 07/30/22 09:20 TATED Home Medications Medication Instructions Recorded Confirmed Type aspirin 81 mg tablet,delayed 81 mg PO HS 04/24/19 07/30/22 History release carvedilol 12.5 mg tablet 25 mg PO BID 04/24/19 07/30/22 History atorvastatin 40 mg tablet 40 mg PO DAILY 09/18/21 07/30/22 History duloxetine 60 mg capsule,delayed 60 mg PO HS #90 caps 03/11/22 07/30/22 Rx release (Cymbalta) ropinirole 2 mg tablet 2 mg PO HS #60 tabs 06/11/22 07/30/22 Rx celecoxib 200 mg capsule (Celebrex) 200 mg PO DAILY #30 caps 06/29/22 07/30/22 Rx lisinopril 40 mg tablet 40 mg PO DAILY 06/29/22 07/30/22 History albuterol 90 mcg/actuation aerosol 90 mcg inhalation PRN PRN 07/30/22 07/30/22 History inhaler Shortness Of Breath Patient hx anesthesia problems: post op nausea/vomiting Family hx anesthesia problems: none Results Review: All pre-operative results and documents have been reviewed as part of the pre-operative evaluation. [facility] Past Medical History Medical History Acute bronchitis due to other specified organisms Anxiety Arthralgia Autoimmune disorder BMI 27.0-27.9,adult CAD (coronary artery disease) Changes in vision Contracture of palmar fascia (Dupuytren's) CVID (common variable immunodeficiency) Depression Dietary counseling and surveillance (11/09/16) DJD of shoulder Elevated glucose Encounter for checking and testing of cardiac pacemaker pulse generator [battery] Encounter for immunization (03/23/18) Essential (primary) hypertension (10/09/18) Former smoker Hyperlipidemia Hypertension IgG deficiency Injury of other nerves at ankle and foot level, right leg, initial encounter Injury of other nerves at shoulder and upper arm level, right arm, initial encounter Lumbar back pain Myalgia Neuropathy Ocular migraine BEATRIZ (obstructive sleep apnea) Osteoarthritis Pacemaker Pain in right upper arm PONV (postoperative nausea and vomiting) Restless leg syndrome Rotator cuff tear Rotator cuff tendonitis Screening for lipid disorders Shortness of breath SLAP tear of shoulder Syncope and collapse Trigger finger, right ring finger Vision abnormalities Zoster Surgical History Surgical History H/O heart artery stent 2010 History of carpal tunnel repair Trigger finger, right middle finger Right third trigger finger release October 27, 2020 Family History Family History Mother Family history of malignant neoplasm Family history of malignant neoplasm of breast in first degree relative Sibling Family history of lupus erythematosus Father No problems noted. Other Family history of lung cancer Social History Social History Smoking packs per day: 1 Smoking cigarettes per day: 20.0 Years smoked: 20 Smoking pack-years: 20.00 Smoking status: Former smoker Tobacco type: cigarettes Smoking end date: 06/06/11 Alcohol intake: never Alcohol use details: social drinker, 1 drink per month Substance use: never Substance use type: does not use Livin
--- NOTE | 2022-08-02 12:46 | WPDHPUPDATE1 ---
History and Physical Update Update Date/Time: 08/02/22 12:46 History and Physical has been reviewed, including an updated exam of the patient. There are NO changes in the patient's condition. Risks, benefits, and alternatives have been discussed and questions answered. Patient agrees to proceed with procedure.
[2022-08-02] MEDS: KETOROLAC 15 MG/ML VIAL (*BKC) IV PUSH (12:48)
[2022-08-02 13:16] VITALS: BP 93/39; PULSE 60; RESP 16; O2SAT 96
--- NOTE | 2022-08-02 13:22 | P.OP_ITS ---
Procedure Note - Detailed Date of Procedure 08/02/22 Pre-op Diagnosis right 4th trigger finger Post-op Diagnosis Same Procedure Performed right fourth trigger finger release Surgeon Cas Saavedra MD Job Printer Kevyn Murrieta Anesthesia MAC and Local Description of Procedure The patient was identified and proper site identified. Shewas taken to the operating room and transferred to the OR table placing supine taking care to pad the torso and extremities. She was administered IV sedation. A nonsterile tourniquet was placed high on the right arm which was prepped and draped in the usual sterile fashion. 2 ml of 0.5% Marcaine and epinephrine solution was injected into the subcutaneous tissue over the A1 jesus of the right fourth digit. The extremity was exsanguinated and the tourniquet was inflated to 250 mmHg remaining up for about 7 minutes. A longitudinal incision was made over the A1 jesus. Subcutaneous tissue was bluntly dissected down to the jesus while protecting the neurovascular bundles. The A1 jesus was identified and then transected longitudinally in line with the incision and tendons. The tendons were delivered into the wound verifying the adequacy of the release. Hemostasis was carried out. The wound was irrigated with sterile saline. Skin edges were reapproximated with 4-0 nylon suture. Sterile dressing was applied. Tourniquet was released. There is good capillary refill to all of the digits at the completion of the procedure. She tolerated the procedure well and was transferred back to a cart, then taken to the recovery area in stable condition. There were no known intraoperative complications. Estimated blood loss was negligible. Perioperative antibiotics were administered. Estimated Blood Loss 0 Tourniquet Time 7 Drains No Packing No Pathology None sent Complications No immediate complications Condition Stable Disposition PACU [facility] Billing Surgery - Charge Forward: Surgery Billing ([id number])
[2022-08-02 13:45] VITALS: BP 134/68; PULSE 63; RESP 20
[2022-08-02 14:15] VITALS: BP 159/68; PULSE 60; RESP 20
== END 2022-08-02 14:30 | disposition home or self-care (01) ==
PROVIDERS: PCP Family Medicine; Visit Provider Orthopaedic Surgery
PROC: (CPT 26055; principal; 2022-08-02 13:30)
DX: M65.341 Trigger finger, right ring finger (principal); I25.10 Atherosclerotic heart disease of native coronary artery without angina pectoris; D83.9 Common variable immunodeficiency, unspecified; F32.A Depression, unspecified; F41.9 Anxiety disorder, unspecified; I10 Essential (primary) hypertension; E78.5 Hyperlipidemia, unspecified; G47.33 Obstructive sleep apnea (adult) (pediatric); Z95.0 Presence of cardiac pacemaker; G25.81 Restless legs syndrome; G62.9 Polyneuropathy, unspecified; Z95.5 Presence of coronary angioplasty implant and graft; Z87.891 Personal history of nicotine dependence; Z79.82 Long term (current) use of aspirin; Z79.51 Long term (current) use of inhaled steroids
CPT/HCPCS: 26055; A9270; J1885; J2250; J2405; J2704; J7120

== ENCOUNTER 2022-08-11 10:13 | Emergency (ER) | payer MEDICARE, SELFPAY ==
[2022-08-11] VITALS (8 sets, daily range): BP systolic 150–192; BP diastolic 75–93; PULSE 61–66; RESP 15–20; TEMP 36.7–36.9; O2SAT 97–100
--- NOTE | ~2022-08-11 | XR_ITS ---
XR chest 2V DATE: 08/11/2022 13:01 INDICATION: Shortness of breath TECHNIQUE: PA and lateral views COMPARISON: 01/13/2022 PA and lateral chest FINDINGS: Left dual-lead pacemaker device, leads overlying right atrium and right ventricle. Normal h eart size. Aortic calcification and mild unfolding. No hilar or mediastinal enlargement. No pulmonary infiltrate or consolidation, pleural effusion or pulmonary vascular congestion or pneumo thorax. Osteopenia. IMPRESSION: No active cardiopulmonary disease Aortic atherosclerosis Left dual-lead pacemaker Osteopenia No significant change since 01/13/2022 Reviewed, dictated and finalized at location B. IAL SYSTEMS TECHNICIAN
--- NOTE | 2022-08-11 12:09 | ED.WEAKNESS ---
HPI - Weakness General Chief complaint: Weakness Stated complaint: Sent by PCP , nausea, fatigue Time Seen by Provider: 08/11/22 12:08 History of Present Illness HPI Narrative: Patient is a 72-year-old female with a history of hypertension, hyperlipidemia presenting with multiple complaints. Patient states that for the last several weeks she has had intermittent nausea and chills. States that she thinks that she had COVID a couple weeks ago because her son and [id number] did as well. States that sometimes she wakes up and feels like she has to take a big breath. States that she has been having palpitations. 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 Reports intermittent headaches. No fevers, numbness or weakness, chest pain, cough, abdominal pain, vomiting, constipation, dysuria, leg swelling. Reports chronic diarrhea. Related Data Home Medications Medication Instructions Recorded Confirmed aspirin 81 mg tablet,delayed 81 mg PO HS 04/24/19 07/30/22 release carvedilol 12.5 mg tablet 25 mg PO BID 04/24/19 07/30/22 atorvastatin 40 mg tablet 40 mg PO DAILY 09/18/21 07/30/22 lisinopril 40 mg tablet 40 mg PO DAILY 06/29/22 07/30/22 albuterol 90 mcg/actuation aerosol 90 mcg inhalation PRN PRN 07/30/22 07/30/22 inhaler Shortness Of Breath Allergies Allergy/AdvReac Type Severity Reaction Status Date / Time codeine Allergy Mild Nausea Verified 08/11/22 10:20 Antihistamines - Alkylamine AdvReac Mild ANXIOUS/SHRUTHI Verified 08/11/22 10:20 TATED Review of Systems Review of Systems: All systems reviewed & are unremarkable except as noted in HPI and below PMFSH Past Medical History Medical History Acute bronchitis due to other specified organisms Anxiety Arthralgia Autoimmune disorder BMI 27.0-27.9,adult CAD (coronary artery disease) Changes in vision Contracture of palmar fascia (Dupuytren's) CVID (common variable immunodeficiency) Depression Dietary counseling and surveillance (11/09/16) DJD of shoulder Elevated glucose Encounter for checking and testing of cardiac pacemaker pulse generator [battery] Encounter for immunization (03/23/18) Essential (primary) hypertension (10/09/18) Former smoker Hyperlipidemia Hypertension IgG deficiency Injury of other nerves at ankle and foot level, right leg, initial encounter Injury of other nerves at shoulder and upper arm level, right arm, initial encounter Lumbar back pain Myalgia Neuropathy Ocular migraine BEATRIZ (obstructive sleep apnea) Osteoarthritis Pacemaker Pain in right upper arm PONV (postoperative nausea and vomiting) Restless leg syndrome Rotator cuff tear Rotator cuff tendonitis Screening for lipid disorders Shortness of breath SLAP tear of shoulder Syncope and collapse Vision abnormalities Zoster Surgical History Surgical History H/O heart artery stent 2010 History of carpal tunnel repair Trigger finger, right middle finger Right third trigger finger release October 27, 2020 Trigger finger, right ring finger Trigger finger release August 02, 2022 Family History Family History Mother Family history of malignant neoplasm Family history of malignant neoplasm of breast in first degree relative Sibling Family history of lupus erythematosus Father No problems noted. Other Family history of lung cancer Social History Social History Smoking packs per day: 1 Smoking cigarettes per day: 20.0 Years smoked: 20 Smoking pack-years: 20.00 Smoking status: Former smoker Tobacco type: cigarettes Smoking end date: 06/06/11 Alcohol intake: never Alcohol use details: social drinker, 1 drink per month Substance use: never Substan
--- NOTE | 2022-08-11 12:21 | ECG_ITS ---
Measurements Intervals [place] Rate: 60 P: 132 MO: 247 QRS: -26 QRSD: 145 T: 95 QT: 491 QTc: 491 Interpretive Statements ELECTRONIC ATRIAL PACEMAKER ELECTRONIC VENTRICULAR PACEMAKER BASELINE ARTIFACT- I, II NO FURTHER INTERPRETATION IS POSSIBLE ATYPICAL ECG COMPARED TO ECG 01/13/2022 18:45:16 NO SIGNIFICANT CHANGES Electronically Signed On 08-11-2022 12:42:50 MERCHANDISING STOCK ASSOCIATE by Fabiano Mobley D.O.
[2022-08-11 12:42] LABS: Basophils Percent Auto 0.4 % (0.2-1.2); Eosinophils Absolute Auto 0.1 K/mm3 (0-0.3); Eosinophils Percent Auto 1.9 % (0-4.4); Hematocrit 42.6 % (37.0-47.0); Hemoglobin 14.2 g/dL (12.0-15.0); Immature Granulocyte Absolute 0.02 K/mm3 (0.00-0.031); Immature Granulocyte Percent A 0.3 % (0-0.5); Lymphocytes Absolute Auto 2.04 K/mm3 (0.9-3.2); Mean Corpuscular HGB Conc 33.3 g/dl (32-36); Mean Corpuscular Hemoglobin 29.7 pg (26-34); Mean Corpuscular Volume 89.1 fl (80-100); Mean Platelet Volume 10.2 fl (7.4-10.4); Monocytes Absolute Auto 0.6 K/mm3 (0.1-0.6); Neutrophils Percent Auto 58.4 % (45.5-73.1); Platelet Count Result 275 k/mm3 (150-375); Red Blood Count 4.78 M/mm3 (4.2-5.4); Red Cell Distribution Width 13.1 % (11.5-14.5); White Blood Count 6.8 K/mm3 (4.5-10.0)
[2022-08-11 12:54] LABS: Alanine Aminotransferase 19 U/L (6-35); Albumin Level 4.4 g/dL (3.5-5.1); Alkaline Phosphatase 121 U/L (38-126); Anion Gap 6 mmol/L (8-16); Aspartate Amino Transferase 25 U/L (14-36); Blood Urea Nitrogen 14 mg/dL (7-17); Calcium 8.3 mg/dL (8.4-10.2); Carbon Dioxide 30 mmol/L (22-30); Chloride 103 mmol/L (98-107); Estimated CRCL calculation 71 ml/min; Estimated Glomerular Filt Rate > 60; Glucose 92 mg/dL (65-110); Potassium 3.5 mmol/L (3.4-5.0); Sodium 139 mmol/L (137-145)
[2022-08-11 13:06] LABS: Troponin I < 0.012 ng/mL (0.000-0.034)
[2022-08-11 13:16] LABS: Appearance Urine Clear (Clear); Bacteria Urine None Seen /hpf; Bilirubin Urine Negative (Negative); Blood Urine Trace (Negative); Color Urine Yellow (Yellow); Glucose Urine UA Negative (Negative); Ketones Urine Trace mg/dL (Negative); Leukocyte Esterase Ur 1+ LEU/UL (Negative); Need Manual Microscopic Reviewed; Nitrate Urine Negative (Negative); Non Pathogenic Casts 0-2; Protein Urine Trace mg/dL (Negative); Specific Grav Ur 1.021 (1.001-1.035); Squamous Epithelial Cell Urine None seen /hpf (Few); Urobilinogen Urine 0.2 mg/dL (<2.0); WBC Urine 0-5 /hpf; pH Urine 5.5 (5.0-9.0)
[2022-08-11 13:18] LABS: Influenza A QL RT-PCR Negative (Negative); Influenza B QL RT-PCR Negative (Negative); RSV RNA, RT-PCR Negative (Negative); SARS-CoV-2 RNA PCR Positive
[2022-08-11 13:55] LABS: Add Urine Microscopic? YES
== END 2022-08-11 14:58 | disposition home or self-care (01) ==
PROVIDERS: Emergency Provider Emergency Medicine
DX: U07.1 COVID-19 (principal); R53.83 Other fatigue; I10 Essential (primary) hypertension; I25.10 Atherosclerotic heart disease of native coronary artery without angina pectoris; E78.5 Hyperlipidemia, unspecified; D83.9 Common variable immunodeficiency, unspecified; D80.3 Selective deficiency of immunoglobulin G [IgG] subclasses; G62.9 Polyneuropathy, unspecified; G47.33 Obstructive sleep apnea (adult) (pediatric); G25.81 Restless legs syndrome; M72.0 Palmar fascial fibromatosis [Dupuytren]; M19.019 Primary osteoarthritis, unspecified shoulder; Z87.891 Personal history of nicotine dependence; Z95.0 Presence of cardiac pacemaker; Z79.82 Long term (current) use of aspirin
CPT/HCPCS: 36415; 71046; 80053; 81001; 84443; 84484; 85025; 87637; 93005; 99283

== ENCOUNTER 2022-08-27 08:06 | Outpatient (CLI) | payer MEDICARE, SELFPAY ==
--- NOTE | ~2022-08-27 | CT_ITS ---
Non-contrast Head CT History: Headache, neurologic issues, hypocalcemia Technique: Axial pre and postcontrast imaging of the brain was performed. 100 cc of Omnipaque 350 co ntrast material was administered for postcontrast images. Dose reduction technique was used on this s can by utilizing automated exposure control and iterative reconstruction technique. The dose-length p roduct (DLP) was 1059.33 mGy-cm. COMPARISON: 01/13/2022 Findings: There is no evidence of intracranial hemorrhage, mass lesion, or acute infarct. Brain par enchyma appears normal. The ventricles and subarachnoid spaces are normal in size. The calvarium ap pears normal. The visualized paranasal sinuses and mastoid air cells are clear. No abnormal postcontrast enhancement seen. Impression: No significant abnormality seen. Reviewed, dictated and finalized at [facility]. Impression: No significant abnormality seen.
[2022-08-27 09:55] LABS: Calcium 7.9 mg/dL (8.4-10.2)
[2022-09-01 13:55] LABS: Vitamin B6 <2.0 ng/mL (2.1-21.7)
[2022-09-02 16:32] LABS: Parathyroid Hormone Related Pr 11 pg/mL (11-20)
== END 2022-08-27 08:07 | disposition home or self-care (01) ==
PROVIDERS: PCP Family Medicine; Visit Provider Family Medicine
DX: E83.51 Hypocalcemia (principal); E56.9 Vitamin deficiency, unspecified; L30.9 Dermatitis, unspecified; G43.109 Migraine with aura, not intractable, without status migrainosus; H53.8 Other visual disturbances; R23.2 Flushing; R61 Generalized hyperhidrosis
CPT/HCPCS: 36415; 70470; 82310; 82330; 82607; 83519; 84207; Q9967

== ENCOUNTER 2023-01-17 09:09 | Outpatient (CLI) | payer MEDICARE, SELFPAY ==
[2023-01-17 10:06] LABS: Basophils Absolute Auto 0.1 K/mm3 (0.0-0.1); Basophils Percent Auto 0.9 % (0.2-1.2); Eosinophils Absolute Auto 0.2 K/mm3 (0-0.3); Eosinophils Percent Auto 2.9 % (0-4.4); Hematocrit 41.8 % (37.0-47.0); Hemoglobin 13.6 g/dL (12.0-15.0); Immature Granulocyte Absolute 0.02 K/mm3 (0.00-0.031); Immature Granulocyte Percent A 0.3 % (0-0.5); Lymphocytes Absolute Auto 1.86 K/mm3 (0.9-3.2); Lymphocytes Percent Auto 27.4 % (18.3-44.2); Mean Corpuscular HGB Conc 32.5 g/dl (32-36); Mean Corpuscular Hemoglobin 30.7 pg (26-34); Mean Corpuscular Volume 94.4 fl (80-100); Mean Platelet Volume 11.1 fl (7.4-10.4); Monocytes Absolute Auto 0.7 K/mm3 (0.1-0.6); Monocytes Percent Auto 10.3 % (2.6-8.5); Neutrophils Percent Auto 58.2 % (45.5-73.1); Platelet Count Result 226 k/mm3 (150-375); Red Blood Count 4.43 M/mm3 (4.2-5.4); Red Cell Distribution Width 13.7 % (11.5-14.5); White Blood Count 6.8 K/mm3 (4.5-10.0)
[2023-01-17 10:21] LABS: Alanine Aminotransferase 23 U/L (6-35); Albumin Level 4.2 g/dL (3.5-5.1); Alkaline Phosphatase 81 U/L (38-126); Anion Gap 2 mmol/L (8-16); Aspartate Amino Transferase 28 U/L (14-36); Bilirubin,Total 0.9 mg/dL (0.2-1.3); Blood Urea Nitrogen 21 mg/dL (7-17); Calcium 8.8 mg/dL (8.4-10.2); Carbon Dioxide 31 mmol/L (22-30); Chloride 104 mmol/L (98-107); Cholesterol 188 mg/dL (0-200); Estimated Glomerular Filt Rate > 60; Glucose 102 mg/dL (65-110); HDL Direct 45 mg/dL; Potassium 3.4 mmol/L (3.4-5.0); Sodium 137 mmol/L (137-145); Triglycerides 145 mg/dL (<150)
[2023-01-17 10:31] LABS: LDL Cholesterol Direct 120 mg/dL
[2023-01-17 11:48] LABS: Vitamin D 25 Hydroxy 29.5 ng/mL
[2023-01-25 08:08] LABS: Testosterone Free 1.7 pg/mL (0.2-3.7); Testosterone Total 22 ng/dL (2-45)
== END 2023-01-17 09:10 | disposition home or self-care (01) ==
LOC: ANHLAB 09:12
PROVIDERS: PCP Family Medicine; Visit Provider Family Medicine
DX: E55.9 Vitamin D deficiency, unspecified (principal); I10 Essential (primary) hypertension; E78.2 Mixed hyperlipidemia; Z13.220 Encounter for screening for lipoid disorders; L65.9 Nonscarring hair loss, unspecified
CPT/HCPCS: 36415; 80048; 80061; 80076; 82306; 84402; 84403; 84443; 85025

== ENCOUNTER 2024-02-29 11:36 | Outpatient (CLI) | payer MEDICARE, SELFPAY ==
[2024-02-29 12:28] LABS: Basophils Percent Auto 0.3 % (0.2-1.2); Eosinophils Absolute Auto 0.2 K/mm3 (0-0.3); Eosinophils Percent Auto 1.9 % (0-4.4); Hematocrit 35.7 % (37.0-47.0); Hemoglobin 12.1 g/dL (12.0-15.0); Immature Granulocyte Absolute 0.02 K/mm3 (0.00-0.031); Immature Granulocyte Percent A 0.2 % (0-0.5); Lymphocytes Absolute Auto 1.48 K/mm3 (0.9-3.2); Lymphocytes Percent Auto 15.7 % (18.3-44.2); Mean Corpuscular HGB Conc 33.9 g/dl (32-36); Mean Corpuscular Hemoglobin 31.6 pg (26-34); Mean Corpuscular Volume 93.2 fl (80-100); Monocytes Absolute Auto 0.4 K/mm3 (0.1-0.6); Monocytes Percent Auto 4.3 % (2.6-8.5); Neutrophils Absolute Auto 7.3 K/mm3 (1.3-6.7); Neutrophils Percent Auto 77.6 % (45.5-73.1); Platelet Count Result 271 k/mm3 (150-375); Red Blood Count 3.83 M/mm3 (4.2-5.4); Red Cell Distribution Width 13.3 % (11.5-14.5); White Blood Count 9.4 K/mm3 (4.5-10.0)
[2024-02-29 12:42] LABS: Alanine Aminotransferase 14 U/L (6-35); Albumin Level 4.1 g/dL (3.5-5.1); Alkaline Phosphatase 84 U/L (38-126); Anion Gap 9 mmol/L (4-12); Aspartate Amino Transferase 27 U/L (14-36); Bilirubin,Total 1.1 mg/dL (0.2-1.3); Blood Urea Nitrogen 27 mg/dL (7-17); Calcium 9.3 mg/dL (8.4-10.2); Carbon Dioxide 26 mmol/L (22-30); Chloride 103 mmol/L (98-107); Estimated Glomerular Filt Rate 44; Glucose 128 mg/dL (65-110); Potassium 3.8 mmol/L (3.4-5.0); Sodium 138 mmol/L (137-145)
== END 2024-02-29 11:37 | disposition home or self-care (01) ==
PROVIDERS: PCP Family Medicine; Visit Provider Internal Medicine Cardiovascular Disease
DX: R42 Dizziness and giddiness (principal); I77.1 Stricture of artery
CPT/HCPCS: 36415; 80053; 85025

== ENCOUNTER 2024-03-07 09:35 | Outpatient (CLI) | payer MEDICARE, SELFPAY ==
--- NOTE | ~2024-03-07 | XR_ITS ---
AP view of the pelvis and AP and lateral views of the left hip Clinical history: Pain Findings: No acute fracture or dislocation is seen. Osseous alignment is anatomic. Bilateral hip and SI joint spaces are preserved. Soft tissues are unremarkable. Impression: No significant abnormality is seen. Reviewed, dictated and finalized at [facility]. Impression: No significant abnormality is seen.
== END 2024-03-07 09:36 | disposition home or self-care (01) ==
PROVIDERS: PCP Family Medicine
DX: M25.552 Pain in left hip (principal)
CPT/HCPCS: 73502

== ENCOUNTER 2024-11-12 16:25 | Emergency (ER) | payer OTHER, MEDICARE, SELFPAY ==
[2024-11-12] VITALS (11 sets, daily range): BP systolic 126–159; BP diastolic 57–92; PULSE 71–82; RESP 16–18; TEMP 36.6; O2SAT 98–100
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
--- OUTSIDE RECORDS SUMMARY | 2024-11-12 16:46 | XMS_ITS | Clinical Summary ---
Author Organization [facility] [employer] Address [address] [place] [address] Care Team Providers Care Slip Bridge Operator Name Role Phone Gato Rose MD Primary Care Provider [phone] Source Comments [facility] [employer],non-owned Affiliates and Associated Physician Practices is amultiple site organization consisting of ambulatory clinics and hospital sitesin [place], [place] and [place]. This disclosure is being madepursuant to the Care Everywhere program and may not contain all information available regarding this patient. Last updated 18.[facility] [employer] Allergies No known active allergies Medications * Be aware that medications may not be up to date on this document. Alwaysverify current medications with the patient. PARoxetine (PAXIL) 10 MG tablet Take 20 mg by mouth once daily. Active ROPINirole (REQUIP) 2 MG tablet Take 2 mg by mouth 3 times daily. Active albuterol HFA (PROVENTIL;ROSEMARY LETY;PROAIR) 108 (90 BASE) MCG/ACT inhaler Inhale 2 Puffs by mouth every 6 hours as needed. Active atorvastatin (LIPITOR) 20 MG tablet Take 20 mg by mouth at bedtime. Active amLODIPine (NORVASC) 10 MG tablet Take 10 mg by mouth once daily. Active lisinopril (PRINIVIL; ZESTRIL) 10 MG tablet Take 10 mg by mouth once daily. Active clopidogrel (PLAVIX) 75 MG tablet Take 75 mg by mouth once daily. Active pregabalin (LYRICA) 75 MG capsule Take 75 mg by mouth 3 times daily. Active aspirin EC (ECOTRIN) 81 MG tablet Take 81 mg by mouth once daily. Active Social History Tobacco Use Types Packs/Day Years Used Date Smoking Tobacco: Every Day Cigarettes Tobacco Cessation:Ready to Q uit: No; Counseling Given: Yes Alcohol Use Standard Drinks/Week Comments Not Asked 0 (1 standard drink = 0.6 oz pur e alcohol) Comments Unknown Sex and Gender Information Value Date Recorded Sex Assigned at Not on file Legal Sex Female 2:08 PM BAGGER AND STOCK HANDLER HELPER Gender Identity Not on file Sexual Orientation Not on file Last Filed Vital Signs Vital Sign Reading Time Taken Comments Blood Pressure 181/91 07/21/2015 9:15 AM BAGGER AND STOCK HANDLER HELPER Pulse 80 07/21/2015 9:15 AM BAGGER AND STOCK HANDLER HELPER Temperature 36.8 C (98.2 F) 07/21/2015 9:15 AM BAGGER AND STOCK HANDLER HELPER Respiratory Rate 16 07/21/2015 9:15 AM BAGGER AND STOCK HANDLER HELPER Oxygen Saturation 98% 02/10/2012 9:35 AM CDT Inhaled Oxygen Concentration - - Weight 69.4 kg (153 lb 1.6 oz) 07/21/2015 9:15 A M BAGGER AND STOCK HANDLER HELPER Height 160 cm (5' 3) 07/21/2015 9:15 AM BAGGER AND STOCK HANDLER HELPER Body Mass Index 27.12 07/21/2015 9:15 AM BAGGER AND STOCK HANDLER HELPER Plan of Treatment Health Maintenance Due Date Last Done Comments BONE DENSITY TESTING 1950 COLOGUARD (AGES 45-75) - COL ON CA SCREENING 1952 COLON MONITORING 1952 COLONOSCOPY - COLON CA SCREENING 1952 CT COLONOGRAPHY - COLON CA SCREENING 1950 Colorectal Cancer Screening 1950 FIT - COLON CA SCREENING 1952 FLEX SIG - COLON CA SCREENING 1950 MAMMOGRAM 1950 DTAP/TDAP/TD VACCINES (1 - Tdap) 01/21/1971 PNEUMOCOCCAL VACCINE 50+ (1 of 2 - PCV) 01/21/1971 ZOSTER VACCINE (1 of 2) 01/21/2002 COVID-19 VACCINE ( - 2023-2 5 season) 2024 DEPRESSION SCREENING 06/06/2024 INFLUENZA VACCINE (Season Ended) 2025 Respiratory Syncytial Virus (RSV) Vaccine Pt: or over 60 yrs (1 - 1-dose 75+ series) 01/21/2027 HEPATITIS C SCREENING Completed 06/12/2015 HEPATITIS B VACCINE Aged Out No longe r eligible based on patient's age to complete this topic HIB VACCINE Aged Out No longer eligi ble based on patient's age to complete this topic HPV VACCINE Aged Out No longer eligi ble based on patient's age to complete this topic MENINGOCOCCAL (Group B) VACC INE SHARED DECISION-MAKING Aged Out No longer eligibl e based on patient's age to complete this topic MENINGOCOCCAL GROUPS A/C/Y/W VACCINE Aged Out No longer eligible b ased on patient's age to complete this topic Procedures Procedure Name Priority Date/Time Associated Diagnosis Comments HEPATITIS C ANTIBODY Routine 06/12/2015 10:48 AM BAGGER AND STOCK HANDLER HELPER from Last 3 Months or Most Recently Relevant to Health Maintenance Results * HEPATITIS C ANTIBODY (06/12/2015 10:48 AM BAGGER AND STOCK HANDLER HELPER) [facility]: Hepatitis C Antibody screen indicates no serologic evidence of past or current infection with Hepatitis C Virus. Patients with unexplained liver disease who are immunocompromised or suspected of having acute Hepatitis C infection may benefit from Nucleic Acid Test (COLE) for Hepatitis C Viral RNA to confirm Hepatitis C status. Blood specimen (specimen) BLOOD SPECIMEN / Unknown 06/12/2015 10:48 AM BAGGER AND STOCK HANDLER HELPER 06/12/2015 11:02 AM BAGGER AND STOCK HANDLER HELPER us Joshua Burnett MD LAB - CHEMISTRY ORDERABLES Ericka norwood Result [facility] [address] [phone] from Last 3 Months or Most Recently Relevant to Health Maintenance Care Teams Slip Bridge Operator Relationship Specialty Start Date End Date Gato Rose MD [address] [place] [address] PCP - General 02/10/12
--- OUTSIDE RECORDS SUMMARY | 2024-11-12 16:46 | XMS_ITS | Clinical Summary ---
Author Organization [facility] Address [address] [place] [address] Phone Care Team Providers Care Bathroom Tiling Professional Name Role Phone Gato Rose MD Primary Care Provider Allergies No known active allergies Medications lisinopril (PRINIVIL) 10 mg Oral tablet Take 10 mg by mouth daily at bedtime. Active PARoxetine HCl (PAXIL) 20 mg Oral tablet Take 20 mg by mouth daily at bedtime. Active amLODIPine (NORVASC) 10 mg Oral tablet Take 10 mg by mouth daily at bedtime. Active atorvastatin (LIPITOR) 20 mg Oral tablet Take 20 mg by mouth Daily LATE. Active pregabalin (LYRICA) 150 mg Oral Cap Take 150 mg by mouth every 12 hours. Active omeprazole (PRILOSEC) 40 mg Oral CpDR Take 40 mg by mouth daily at bedtime. Active budesonide-form oterol (SYMBICORT) 160-4.5 mcg/actuation Inhalation HFAA Take 2 Puffs by inhalation 2 times daily. Active albuterol 90 mcg/Actuation Inhalation HFAA inhaler Take 2 Puffs by inhalation every 6 hours as needed. Active DULoxetine (CYMBALTA) 60 mg Capsule, Delayed Release(E.C.) Take 60 mg by mouth Daily LATE. Active carvedilol (COREG) 12.5 mg tablet Take 12.5 mg by mouth 2 times daily. Active nitroglycerin (NITROSTAT) 0.4 mg Tablet, Sublingual Place 0.4 mg under tongue every 5 minutes as needed for Chest Pain. Active tiotropium (SPIRIVA) 18 mcg capsule Take 18 mcg by inhalation 1 time daily as needed. Active fluticasone-kostas meterol (ADVAIR DISKUS) 250-50 mcg/dose Disk with Device Take 1 Puff by inhalation 1 time daily as needed. Active rOPINIRole (REQUIP) 2 mg Tablet Take 2 mg by mouth daily at bedtime. Active HYDROcodone-yelitza taminophen (NORCO) 5-325 mg tablet Take 1-2 Tabs by mouth every 4 hours as needed for Pain. 90 Tab 0 3 Active cyclobenzaprine (FLEXERIL) 10 mg tablet Take 0.5-1 Tabs by mouth 3 times daily as needed for Discomfort or Spasm. 40 Tab 1 3 Active Active Problems Problem Noted Date Diagnosed Date HNP (herniated nucleus pulposus), lumbar 013 Social History Tobacco Use Types Packs/Day Years Used Date Smoking Tobacco: Former Cigarettes 0 07/07/1992 - 07/07/2012 Smokeless Tobacco: Never Alcohol Use Standard Drinks/Week Comments No 0 (1 standard drink = 0.6 oz pur e alcohol) Comments No Sex and Gender Information Value Date Recorded Sex Assigned at Not on file Legal Sex Female 9:30 AM BOOKS BINDER Gender Identity Not on file Sexual Orientation Not on file Occupation Industry Job Start Date Job End Date Not on file Not on file Not on file Not on file Last Filed Vital Signs Vital Sign Reading Time Taken Comments Blood Pressure 92/53 06/01/2013 7:30 AM BOOKS BINDER Pulse 86 06/01/2013 7:30 AM BOOKS BINDER Temperature 37.1 C (98.8 F) 06/01/2013 7:30 AM BOOKS BINDER Respiratory Rate 18 06/01/2013 8:55 AM BOOKS BINDER Oxygen Saturation 97% 06/01/2013 7:30 AM BOOKS BINDER Inhaled Oxygen Concentration - - Weight 72.8 kg (160 lb 9.6 oz) 05/31/2013 10:19 AM BOOKS BINDER Height 160 cm (5' 3) 05/28/2013 2:20 PM BOOKS BINDER Body Mass Index 28.45 05/28/2013 2:20 PM BOOKS BINDER Plan of Treatment Health Maintenance Due Date Last Done Comments DTAP/TDAP/TD VACCINES (1 - Tdap) 01/21/1971 BREAST CANCER SCREENING 1992 COLORECTAL SCREENING 01/21/1997 Colorectal Cancer Screening 01/21/1997 FIT-DNA Q 3 years 01/21/1997 FIT/FOBT Q 1 year 01/21/1997 Flex Sig/CT Colonography Q 5 years 01/21/1997 PNEUMOCOCCAL VACCINE 50+ YEARS (1 of 1 - PCV) 01/22/20 02 ZOSTER VACCINE (1 of 2) 01/21/2002 OSTEOPOROSIS SCREENING 01/21/2017 INFLUENZA VACCINE (#1) 2024 RSV VACCINE (60+ or ) (1 - 1-dose 75+ series) 01/21/2027 Medical Devices Implanted Type Area Lead Cytogenetic Technologist Device Identifier Shelf Expiration Date Model / Serial / Lot Sealant Floseal W/ Adptr 10ml [id number] - [id number] Implanted:Qty : 1 on 05/31/2013 by Fritz Tim MD at [facility] Sealant N/A: Spine Lumbar GANDHI- BIOSCIENCE 08/03/2014 [id number] / / [id number] Insurance [employer]/TRUE [employer] PPO Advance Directives For more information, please contact: [phone] * Full Code (Latest Code Status on File) Date Activated Date Inactivated Comments 05/31/2013 1:43 PM 06/01/2013 12:11 PM * Full Code Date Activated Date Inactivated Comments 05/31/2013 12:35 PM 05/31/2013 1:43 PM * Full Code Date Activated Date Inactivated Comments 05/31/2013 10:20 AM 05/31/2013 12:35 PM * Full Code Date Activated Date Inactivated Comments 04/23/2013 9:39 AM 04/23/2013 3:27 PM * Full Code Date Activated Date Inactivated Comments 08/10/2012 6:34 PM 08/11/2012 3:32 PM Care Teams Bathroom Tiling Professional Relationship Specialty Start Date End Date Gato Rose MD [address] [place] [address] PCP - General Family Practice 07/25/12
--- OUTSIDE RECORDS SUMMARY | 2024-11-12 16:46 | XMS_ITS | Referral Summary ---
Author Organization [facility] [address] Address [address] [place] [address] Care Team Providers Care Leather Tacker Name Role Phone Gato Rose MD Primary Care Provider [phone] Encounters Date Type Department Care Team Description 10/02/2024 7:15 AM CDT Ancillary Procedure [facility] Cardiology [address], [place] [address] Cardiac pacemaker in situ; Mobitz type 2 second degree heart block 09/26/2024 9:00 AM CDT Office Visit [facility] Cardiology [address] [place] [address] Miguel Kirkpatrick MD Primary hypertension (Primary Dx); Mobitz type 2 second degree heart block; Cardiac pacemaker in situ; Subclavian artery stenosis, left; Status post angioplasty with stent; Nonrheumatic aortic valve insufficiency from Last 3 Months Allergies Active Allergy Reactions Criticality Noted Date Comments Aspirin Other (See comments) Low 01/26/2018 Munoz stomach Medications aspirin 81 mg tablet take 1 tablet (81MG) by oral route every day 0 04/14/20 11 Active tiotropium (SPIRIVA WITH HANDIHALER) 18 mcg per inhalation capsule inhale 1 capsule (18MCG) by inhalation route every day 0 09/22/19 13 Active rOPINIRole (REQUIP) 2 mg tablet Take 1 tablet (2 mg total) by mouth nightly Active DULoxetine DR (CYMBALTA) 60 mg capsule Take 1 capsule (60 mg total) by mouth daily Active albuterol HFA (PROVENTIL HFA,VENTOLIN HFA,PROAIR HFA) 90 mcg/actuation inhaler Inhale 2 puffs every 6 (six) hours as needed 03/04/20 Active celecoxib (CeleBREX) 200 mg capsule Take 1 capsule (200 mg total) by mouth daily 02/17/20 Active evolocumab (Repatha SureClick) 140 mg/mL pen injector Inject 1 mL (140 mg total) under the skin every 14 (fourteen) days 2 mL 02/16/20 24 Active Additional Information Patient not taking.Informant: Self, Reported on 09/26/2024 carvediloL (COREG) 25 mg tabletIndicatio ns:Essential hypertension Take 1 tablet (25 mg total) by mouth 2 (two) times a day 180 tablet 3 03/09/20 24 Active lisinopriL (PRINIVIL,ZESTR IL) 40 mg tabletIndicatio ns:Primary hypertension Take 1 tablet by mouth twice daily 180 tablet 2 06/13/19 25 Active atorvastatin (LIPITOR) 40 mg tablet Take 1 tablet (40 mg total) by mouth daily 30 tablet 09/27/19 25 026 Active amLODIPine (NORVASC) 10 mg tablet Take 1 tablet (10 mg total) by mouth daily 30 tablet 09/27/19 25 026 Active spironolactone (ALDACTONE) 25 mg tablet Take 1 tablet by mouth once daily 90 tablet 2 10/31/19 25 Active spironolactone (ALDACTONE) 25 mg tablet Take 1 tablet by mouth once daily 30 tablet 10/02/19 25 025 Discontinued Active Problems Problem Noted Date Diagnosed Date Subclavian artery stenosis, left 01/25/2024 Dizziness 01/25/2024 Visit for wound check 04/30/2020 Cardiac pacemaker in situ 04/20/2017 Overview (06/30/2021): Cooper/[employer] Assurity Dual Pacemaker Dx; Second Degree Heart Block type 2. Gen change 04/25/2020-[facility], chronic leads 05/18/2011. Foster remote monitoring. Social History Tobacco Use Types Packs/Day Years Used Date Smoking Tobacco: Former Smokeless Tobacco: Never Tobacco Cessation:Counseling Given: Not Answered Alcohol Use Standard Drinks/Week Comments No 0 (1 standard drink = 0.6 oz pur e alcohol) Personal Safety Answer Date Recorded Have you ever been in or are you currently in a harmful physical or emotional relationship or is someone making you feel afraid or unsafe? Denies 03/02/2024 Comments Unknown Sex and Gender Information Value Date Recorded Sex Assigned at Not on file Legal Sex Female 10:13 AM VISITOR SERVICES ASSOCIATE Gender Identity Not on file Sexual Orientation Not on file Last Filed Vital Signs Vital Sign Reading Time Taken Comments Blood Pressure 168/82 09/26/2024 8:50 AM CDT Pulse 74 09/26/2024 8:50 AM CDT Temperature 36.4 C (97.6 F) 03/02/2024 7:01 AM CDT Respiratory Rate 18 03/02/2024 7:01 AM CDT Oxygen Saturation 98% 09/26/2024 8:50 AM CDT Inhaled Oxygen Concentration - - Weight 67.3 kg (148 lb 4.8 oz) 09/26/2024 8:50 A M CDT Height 160 cm (5' 3) 09/26/2024 8:50 AM CDT Body Mass Index 26.27 09/26/2024 8:50 AM CDT Plan of Treatment Not on file Medical Devices Implanted Type Area Gunstock Spray Unit Adjuster Device Identifier Shelf Expiration Date Model / Serial / Lot Pacemaker-05/06 Implanted:05/06 (Quantity not on file) Pacemaker Chest [employer] Medical Sceond Degree AVB ACCENT [id number] / [id number] / Access [employer] Device 10ml 5fr Closure Mynx Control 2 Mode Balloon Catheter [id number] - [id number] Implanted:Qty: 1 on 03/02/2024 by Miguel Kirkpatrick MD at [facility] [employer] 05/05/2024 [id number] / / [id number] Procedures Procedure Name Priority Date/Time Associated Diagnosis Comments DEVICE CHECK - REMOTE Routine 10/02/2024 9:42 AM CDT Cardiac pacemaker in situ Mobitz type 2 second degree heart block from Last 3 Months Results * DEVICE CHECK - REMOTE (10/02/2024 9:42 AM CDT) Anatomical Region Laterality Modality Other Narrative 10/19/2024 12:01 PM CDT Cooper/[employer] Assurity Dual Pacemaker Dx; Second Degree Heart Block type 2. Gen change 04/25/2020-[facility], chronic leads 05/18/2011. Foster remote monitoring. Routine DDD Pacemaker Remote. Transmission attached. Battery status: 2.98 V, 4.3 years remaining battery life to BARBARA. Stable lead impedances, pacing and sensing thresholds. Presenting rhythm: AP/MARKET ASSET PROTECTION MANAGER AP-38%, MARKET ASSET PROTECTION MANAGER-> 99% No AT/AF episodes noted. 10 Ventricular high rate episodes detected, IEGM demonstrates noise on ventricular lead. Medications: ASA 81 mg, amlodipine 10 mg, carvedilol 25 mg, lisinopril 40 mg See scanned report. Office pacemaker follow up: 09/25/25 Brock remote f/u 01/01/25. Sachin Lemus, ROLANDO us Miguel Kirkpatrick MD [facility] CARDIAC SERVICES PROCEDURES F inal Result from Last 3 Months Insurance UHC MEDICARE ADVANTAGE Care Teams Leather Tacker Relationship Specialty Start Date End Date Gato Rose MD PCP - General 09/03/16
--- OUTSIDE RECORDS SUMMARY | 2024-11-12 16:46 | XMS_ITS | Clinical Summary ---
Author Organization [facility] [address] Address [address] [place] [address] Care Team Providers Care Assembler Wet Wash Name Role Phone Gato Rose MD Primary Care Provider [phone] Allergies Active Allergy Reactions Criticality Noted Date [...] every 6 (six) hours as needed 03/04/20 23 Active celecoxib (CeleBREX) 200 mg capsule Take 1 capsule (200 mg total) by mouth daily 02/17/20 23 Active evolocumab (Repatha SureClick) 140 mg/mL pen injector Inject 1 mL (140 mg total) under the skin every 14 (fourteen) days 2 mL 11 02/16/20 24 Active Additional Information Patient not [...] total) by mouth daily 30 tablet 09/27/19 026 Active amLODIPine (NORVASC) 10 mg tablet Take 1 tablet (10 mg total) by mouth daily 30 tablet 09/27/19 026 Active spironolactone (ALDACTONE) 25 mg tablet [...] Degree Heart Block type 2. Gen change 04/25/2020-Jeff, moose leads 05/18/2011. [place] remote monitoring. Encounters Date Type Department Care Team Description 10/02/2024 7:15 AM CDT Ancillary Procedure [facility] Cardiology [address] [facility] [address] [place] [address] Cardiac pacemaker in situ; Mobitz type 2 second degree heart block 09/26/2024 9:00 AM CDT Office Visit [facility] Cardiology [address] [facility] [address] [place] [address] Miguel Kirkpatrick MD Primary hypertension (Primary Dx); Mobitz type 2 second degree heart block; Cardiac pacemaker in situ; Subclavian artery stenosis, left; Status post angioplasty with stent; Nonrheumatic aortic valve insufficiency from Last 3 Months Surgical History Surgery Date Site/Laterality Comments HYSTERECTOMY Hysterectomy SECTION Caesarean Section OTHER SURGICAL HISTORY B/L carpel tunnel surgery OTHER SURGICAL HISTORY Lymph node biopsy neck OTHER SURGICAL HISTORY C spine surgery OTHER SURGICAL HISTORY Arrhythmias Second Degree Type 2 block s/p PPM: OTHER SURGICAL HISTORY [address] [facility] Medical History Medical History Date Comments Hx Other Medical 1990 Lymphoma, 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 Tx) Hx Other Medical COPD: Chronic B ronchitis Hx Other Medical Depression, wit h Anxiety Hx Other Medical Restless leg sy ndrome Hx Other Medical 2010 Arrhythmias Sec ond Degree Type 2 block s/p PPM Hx Other Medical Decreased DLCO Hx Other Medical Peripheral Vasc ular Disease/left subclavian stenos Hx Other Medical Peripheral Neur opathy Sleep apnea PONV (postoperative nausea and vomiting) Arrhythmia Lung disease Irritable bowel syndrome Cancer (HCC) Subclavian artery stenosis, left Dizziness Family History Medical History Relation Name Comments Lung cancer Father 2 Cancer, lung; C ause of : Cancer, lung Breast cancer Mother 2 Cancer, breast ; Cause of : Cancer, breast Relation Name Status Comments Father 1 (Age 67) Father 2 Mother 1 (Age 33) Mother 2 Social History Tobacco Use Types Packs/Day Years [...] on file Legal Sex Female 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 Gender Identity Not on file Sexual Orientation Not on file Obstetrics History Last Filed Vital Signs Vital Sign Reading [...] 09/26/2024 8:50 AM CDT Plan of Treatment Health Maintenance Due Date Last Done Comments Breast Cancer Screening-Mammogram 1952 Colon Cancer Screening-Colonoscopy 1950 Depression Screening 1950 Hepatitis C Screening 1950 Osteoporosis Screening-Bone Density Scan 1952 DTaP/Tdap/Td Vaccine (1 - Tdap) 01/21/1963 Hepatitis B Screening 01/21/1970 Pneumococcal vaccine 65+ (1 of 1 - PCV) 01/21/2002 Zoster Vaccine (1 of 2) 01/21/2002 Well Visit 65+ 01/21/2017 Influenza Vaccine (Season Ended) 2025 03/06/2019, 03/23/2018, 02/13/2013 Fall Risk Assessment 03/02/2025 03/02/2024 Medical Devices Implanted Type Area Electronic Equipment Trades Worker Device Identifier Shelf Expiration Date Model / Serial / Lot Pacemaker-05/06 Implanted:05/06 (Quantity not on file) Pacemaker Chest [facility] [employer] Sceond Degree AVB ACCENT [id number] / [id number] / [employer] Device 10ml 5fr Closure Mynx Control 2 Mode Balloon Catheter [id number] - [id number] Implanted:Qty: 1 on 03/02/2024 by Miguel Kirkpatrick MD at [facility] [employer] 05/05/2024 [id number] / / [id number] Procedures Procedure Name Priority Date/Time Associated Diagnosis [...] Degree Heart Block type 2. Gen change 04/25/2020-Fleissner, chronic leads 05/18/2011. [place] remote monitoring. Routine DDD Pacemaker Remote. Transmission attached. Battery status: 2.98 V, 4.3 years remaining battery life to BARBARA. Stable lead impedances, pacing and sensing thresholds. Presenting rhythm: AP/SAND ANALYST AP-38%, SAND ANALYST-> 99% No AT/AF episodes noted. 10 Ventricular high rate episodes detected, IEGM demonstrates noise on ventricular lead. Medications: ASA 81 mg, amlodipine 10 mg, carvedilol 25 mg, lisinopril 40 mg See scanned report. Office pacemaker follow up: 09/25/25 [place] remote f/u 01/01/25. Sachin Lemus RN Miguel Kirkpatrick MD CV CARDIAC SERVICES PROCEDURES F inal Result from Last 3 Months Insurance MEDICARE ADVANTAGE [facility] MEDICARE ADVANTAGE Care Teams Assembler Wet Wash Relationship Specialty Start Date End Date Gato Rose MD [facility] - General 09/03/16
--- OUTSIDE RECORDS SUMMARY | 2024-11-12 17:51 | XMS_ITS | Clinical Summary ---
Author Organization [facility] Address [address] [place] [address] Care Team Providers Care Supervisor Soakers Name Role Phone Gato Rose MD Primary Care Provider [phone] Source Comments [facility],non-owned Affiliates and Associated Physician Practices is amultiple site organization consisting of ambulatory clinics and hospital sitesin [place], [place], [place] and [place]. This disclosure is being madepursuant to the Care Everywhere program and may not contain all information available regarding this patient. Last updated 18.[facility] Allergies No known active allergies Medications * [...] on file Legal Sex Female 2:08 PM IMPROVEMENT ADVISOR Gender Identity Not on file Sexual Orientation Not on file Last Filed Vital Signs Vital Sign Reading Time Taken Comments Blood Pressure 181/91 07/21/2015 9:15 AM IMPROVEMENT ADVISOR Pulse 80 07/21/2015 9:15 AM IMPROVEMENT ADVISOR Temperature 36.8 C (98.2 F) 07/21/2015 9:15 AM IMPROVEMENT ADVISOR Respiratory Rate 16 07/21/2015 9:15 AM IMPROVEMENT ADVISOR Oxygen Saturation 98% 02/10/2012 9:35 AM CDT Inhaled Oxygen Concentration - - Weight 69.4 kg (153 lb 1.6 oz) 07/21/2015 9:15 A M IMPROVEMENT ADVISOR Height 160 cm (5' 3) 07/21/2015 9:15 AM IMPROVEMENT ADVISOR Body Mass Index 27.12 07/21/2015 9:15 AM IMPROVEMENT ADVISOR Plan of Treatment Health Maintenance Due Date [...] HEPATITIS C ANTIBODY Routine 06/12/2015 10:48 AM IMPROVEMENT ADVISOR from Last 3 Months or Most Recently Relevant to Health Maintenance Results * HEPATITIS C ANTIBODY (06/12/2015 10:48 AM IMPROVEMENT ADVISOR) Hepatitis C Antibody [facility]: Hepatitis C Antibody screen indicates no serologic evidence of past or current infection with Hepatitis C Virus. Patients with unexplained liver disease who are immunocompromised or suspected of having acute Hepatitis C infection may benefit from Nucleic Acid Test (COLE) for Hepatitis C Viral RNA to confirm Hepatitis C status. Blood specimen (specimen) BLOOD SPECIMEN / Unknown 06/12/2015 10:48 AM IMPROVEMENT ADVISOR 06/12/2015 11:02 AM IMPROVEMENT ADVISOR us Joshua Burnett MD LAB - CHEMISTRY ORDERABLES Ericka norwood Result [facility] [address] [phone] from Last 3 Months or Most Recently Relevant to Health Maintenance Care Teams Supervisor Soakers Relationship Specialty Start Date End Date Gato Rose MD [address] [place] [address] PCP - General 02/10/12
--- OUTSIDE RECORDS SUMMARY | 2024-11-12 17:52 | XMS_ITS | Clinical Summary ---
Author Organization [facility] Address [address] [place] [address] Phone Care Team Providers Care Engraver Steel Plate Name Role Phone Gato Rose MD Primary [...] on file Legal Sex Female 9:30 AM INSULATOR TECHNICIAN Gender Identity Not on file Sexual Orientation Not on file Occupation Industry Job Start Date Job End Date Not on file Not on file Not on file Not on file Last Filed Vital Signs Vital Sign Reading Time Taken Comments Blood Pressure 92/53 06/01/2013 7:30 AM INSULATOR TECHNICIAN Pulse 86 06/01/2013 7:30 AM INSULATOR TECHNICIAN Temperature 37.1 C (98.8 F) 06/01/2013 7:30 AM INSULATOR TECHNICIAN Respiratory Rate 18 06/01/2013 8:55 AM INSULATOR TECHNICIAN Oxygen Saturation 97% 06/01/2013 7:30 AM INSULATOR TECHNICIAN Inhaled Oxygen Concentration - - Weight 72.8 kg (160 lb 9.6 oz) 05/31/2013 10:19 AM INSULATOR TECHNICIAN Height 160 cm (5' 3) 05/28/2013 2:20 PM INSULATOR TECHNICIAN Body Mass Index 28.45 05/28/2013 2:20 PM INSULATOR TECHNICIAN Plan of Treatment Health Maintenance Due Date [...] series) 01/21/2027 Medical Devices Implanted Type Area Singer Back Tender Device Identifier Shelf Expiration Date Model / Serial / Lot Sealant Floseal W/ Adptr 10ml [id number] - [id number] Implanted:Qty : 1 on 05/31/2013 by Fritz Tim MD at [facility] Sealant N/A: Spine Lumbar GANDHI- BIOSCIENCE 08/03/2014 [id number] / / [id number] Insurance Causes/TRUE [employer] PPO Advance Directives For more information, please contact: [phone] * Full Code (Latest Code Status on [...] 6:34 PM 08/11/2012 3:32 PM Care Teams Engraver Steel Plate Relationship Specialty Start Date End Date Gato Rose MD [address] [place] [address] PCP - General Family Practice 07/25/12
--- OUTSIDE RECORDS SUMMARY | 2024-11-12 17:52 | XMS_ITS | Clinical Summary ---
Author Organization [facility] [address] Address [address] [place] [address] Care Team Providers Care Probation Worker Name Role Phone Gato Rose MD Primary Care Provider [phone] Allergies Active Allergy Reactions Criticality Noted Date [...] 2. Gen change 04/25/2020-Jeff, moose leads 05/18/2011. [place] remote monitoring. 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 MANAGER Gender Identity Not on file Sexual Orientation [...] 03/02/2025 03/02/2024 Medical Devices Implanted Type Area Auditor/Quality Device Identifier Shelf Expiration Date Model / Serial / Lot Pacemaker-05/06 Implanted:05/06 (Quantity not on file) Pacemaker Chest [facility] [employer] Sceond Degree AVB ACCENT 2210 / [id number] / Access [employer] Device 10ml 5fr Closure Mynx Control 2 Mode Balloon Catheter [id number] - [id number] Implanted:Qty: 1 on 03/02/2024 by Miguel Kirkpatrick MD at [facility] [employer] 05/05/2024 [id number] / / [id number] Procedures Procedure Name Priority Date/Time Associated Diagnosis [...] 2. Gen change 04/25/2020-Fleissner, chronic leads 05/18/2011. [place] remote monitoring. Routine DDD Pacemaker Remote. Transmission attached. Battery status: 2.98 V, 4.3 years remaining battery life to BARBARA. Stable lead impedances, pacing and sensing thresholds. Presenting rhythm: AP/FOREST MANAGER AP-38%, FOREST MANAGER-> 99% No AT/AF episodes noted. 10 Ventricular high rate episodes detected, IEGM demonstrates noise on ventricular lead. Medications: ASA 81 mg, amlodipine 10 mg, carvedilol 25 mg, lisinopril 40 mg See scanned report. Office pacemaker follow up: 09/25/25 [place] remote f/u 01/01/25. Sachin Lemus RN Miguel Kirkpatrick MD CV CARDIAC SERVICES PROCEDURES F inal Result from Last [address]ICARE ADVANTAGE [facility] MEDICARE ADVANTAGE Care Teams Probation Worker Relationship Specialty Start Date End Date Gato Rose MD [facility] - General 09/03/16
--- OUTSIDE RECORDS SUMMARY | 2024-11-12 17:52 | XMS_ITS | Referral Summary ---
Author Organization [facility] [address] [facility] [address] Address [address] [place] [address] Care Team Providers Care Surface Supply Breathing Apparatus Name Role Phone Gaot Rose MD Primary Care Provider [phone] Encounters Date Type Department Care Team Description 10/02/2024 7:15 AM CDT Ancillary Procedure [facility] Medical [facility] Cardiology [address] [facility] [address], [place] [address] Cardiac pacemaker in situ; Mobitz type 2 second degree heart block 09/26/2024 9:00 AM CDT Office Visit [facility] Medical [facility] Cardiology [address] [facility] [address] [place] [address] Miguel Kirkpatrick MD Primary hypertension [...] 2. Gen change 04/25/2020-[facility], chronic leads 05/18/2011. [place] remote monitoring. 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 Gender Identity Not on file Sexual Orientation [...] on file Medical Devices Implanted Type Area Hand Collator Device Identifier Shelf Expiration Date Model / Serial / Lot Pacemaker-05/06 Implanted:05/06 (Quantity not on file) Pacemaker Chest [employer] Sceond Degree AVB ACCENT 2210 / [id number] / Access [employer] Device 10ml 5fr Closure Mynx Control 2 Mode Balloon Catheter [id number] - [id number] Implanted:Qty: 1 on 03/02/2024 by Miguel Kirkpatrick MD at [facility] [employer] 05/05/2024 [id number] / / [id number] Procedures Procedure Name Priority Date/Time Associated Diagnosis [...] 2. Gen change 04/25/2020-[facility], chronic leads 05/18/2011. [place] remote monitoring. Routine DDD Pacemaker Remote. Transmission attached. Battery status: 2.98 V, 4.3 years remaining battery life to BARBARA. Stable lead impedances, pacing and sensing thresholds. Presenting rhythm: AP/DIRECTOR GLOBAL AP-38%, DIRECTOR GLOBAL-> 99% No AT/AF episodes noted. 10 Ventricular high rate episodes detected, IEGM demonstrates noise on ventricular lead. Medications: ASA 81 mg, amlodipine 10 mg, carvedilol 25 mg, lisinopril 40 mg See scanned report. Office pacemaker follow up: 09/25/25 [place] remote f/u 01/01/25. Sachin Lemus, ROL[place] us Miguel Kirkpatrick MD CV CARDIAC SERVICES PROCEDURES F inal Result from Last [address] [place] [address] [place] [address] Care Teams Surface Supply Breathing Apparatus Relationship Specialty Start Date End Date Gato Rose MD PCP - General 09/03/16
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
[2024-11-12] MEDS: ACETAMINOPHEN 500 MG TABLET 1000 MG PO (18:48)
== END 2024-11-12 19:51 | disposition home or self-care (01) ==
PROVIDERS: Emergency Provider Physician Assistant; PCP Family Medicine
DX: S46.912A Strain of unspecified muscle, fascia and tendon at shoulder and upper arm level, left arm, initial encounter (principal); S20.212A Contusion of left front wall of thorax, initial encounter; D83.9 Common variable immunodeficiency, unspecified; I10 Essential (primary) hypertension; E78.5 Hyperlipidemia, unspecified; D80.3 Selective deficiency of immunoglobulin G [IgG] subclasses; G62.9 Polyneuropathy, unspecified; G47.33 Obstructive sleep apnea (adult) (pediatric); G25.81 Restless legs syndrome; M19.019 Primary osteoarthritis, unspecified shoulder; F32.A Depression, unspecified; F41.9 Anxiety disorder, unspecified; Z95.0 Presence of cardiac pacemaker; Z95.5 Presence of coronary angioplasty implant and graft; Z87.891 Personal history of nicotine dependence; Z79.82 Long term (current) use of aspirin; Z79.899 Other long term (current) drug therapy; V44.5XXA Car driver injured in collision with heavy transport vehicle or bus in traffic accident, initial encounter
CPT/HCPCS: 70450; 71250; 72125; 73030; 74176; 99284; A9270

== ENCOUNTER 2025-05-25 17:32 | Emergency (ER) | payer MEDICARE, SELFPAY ==
--- NOTE | ~2025-05-25 | XR_ITS ---
XR foot LT min 3V 05/25/2025 20:29 INDICATION: Left foot pain and bruising PROCEDURE: 3 views left foot COMPARISON: 05/14/2008 FINDINGS: Fracture, dislocation or subluxation is not identified. There is an age-indeterminate avulsion along the lateral margin of the cuboid on the oblique image. Correlate for point tenderness. The soft tissues appear within normal limits. No foreign bodies are identified. IMPRESSION: 1: Age-indeterminate avulsion fracture lateral margin of the cuboid on oblique image. Correlate for point tenderness. Reviewed, dictated and finalized at location O. OMER LEADER
[2025-05-25 17:47] VITALS: BP 144/69; PULSE 83; RESP 20; TEMP 36.4; O2SAT 97
--- OUTSIDE RECORDS SUMMARY | 2025-05-25 20:15 | XMS_ITS | Clinical Summary ---
Author Organization [facility] Address [address] [place] [address] Phone Care Team Providers Care Telegraph Dispatcher Name Role Phone Gato Rose MD Primary [...] Years Used Date Smoking Tobacco: Former Cigarettes 20 0 07/07/1992 - 07/07/2012 Smokeless Tobacco: Never Alcohol Use Standard Drinks/Week Comments No 0 (1 standard drink = 0.6 oz pur e alcohol) Comments No Sex and Gender Information Value Date Recorded Sex Assigned at Not on file Legal Sex Female 9:30 AM OPTICAL GLASS SAWYER Gender Identity Not on file Sexual Orientation Not on file Occupation Industry Job Start Date Job End Date Not on file Not on file Not on file Not on file Last Filed Vital Signs Vital Sign Reading Time Taken Comments Blood Pressure 92/53 06/01/2013 7:30 AM OPTICAL GLASS SAWYER Pulse 86 06/01/2013 7:30 AM OPTICAL GLASS SAWYER Temperature 37.1 C (98.8 F) 06/01/2013 7:30 AM OPTICAL GLASS SAWYER Respiratory Rate 18 06/01/2013 8:55 AM OPTICAL GLASS SAWYER Oxygen Saturation 97% 06/01/2013 7:30 AM OPTICAL GLASS SAWYER Inhaled Oxygen Concentration - - Weight 72.8 kg (160 lb 9.6 oz) 05/31/2013 10:19 AM OPTICAL GLASS SAWYER Height 160 cm (5' 3) 05/28/2013 2:20 PM [employer]ICAL GLASS SAWYER Body Mass Index 28.45 05/28/2013 2:20 PM OPTICAL GLASS SAWYER Plan of Treatment Health Maintenance Due Date [...] 01/21/2002 OSTEOPOROSIS SCREENING 01/21/2017 INFLUENZA VACCINE (#1) 2025 RSV VACCINE (60+ or ) (1 - 1-dose 75+ series) 01/21/2027 Medical Devices Implanted Type Area Stunner Device Identifier Shelf Expiration Date Model / Serial / Lot Sealant Floseal W/ Adptr 10ml [id number] - [id number] Implanted:Qty : 1 on 05/31/2013 by Fritz Tim MD at [facility] Sealant N/A: Spine Lumbar GANDHI- [employer] 08/03/2014 [id number] / / [id number] Insurance [employer] PPO Advance Directives For more information, please contact: [phone] * Full Code (Latest Code Status on [...] 6:34 PM 08/11/2012 3:32 PM Care Teams Telegraph Dispatcher Relationship Specialty Start Date End Date Gato Rose MD [address] [place] [address] PCP - General Family Practice 07/25/12
--- OUTSIDE RECORDS SUMMARY | 2025-05-25 20:15 | XMS_ITS | Clinical Summary ---
Author Organization [facility] Information Assurance Address [address] [place] [address] Care Team Providers Care Barrel And Receiver Aligner Name Role Phone Gato Rose MD Primary Care Provider [phone] Source Comments [facility] Information Assurance,non-owned Affiliates and Associated Physician Practices is amultiple site organization consisting of ambulatory clinics and hospital sitesin [place], [place], [place] and [place]. This disclosure is being madepursuant to the Care Everywhere program and may not contain all information available regarding this patient. Last updated 18.[facility] Information Assurance Allergies No known active allergies Medications * [...] on file Legal Sex Female 2:08 PM REGIONAL BUSINESS MANAGER Gender Identity Not on file Sexual Orientation Not on file Last Filed Vital Signs Vital Sign Reading Time Taken Comments Blood Pressure 181/91 07/21/2015 9:15 AM REGIONAL BUSINESS MANAGER Pulse 80 07/21/2015 9:15 AM REGIONAL BUSINESS MANAGER Temperature 36.8 C (98.2 F) 07/21/2015 9:15 AM REGIONAL BUSINESS MANAGER Respiratory Rate 16 07/21/2015 9:15 AM REGIONAL BUSINESS MANAGER Oxygen Saturation 98% 02/10/2012 9:35 AM CDT Inhaled Oxygen Concentration - - Weight 69.4 kg (153 lb 1.6 oz) 07/21/2015 9:15 A M REGIONAL BUSINESS MANAGER Height 160 cm (5' 3) 07/21/2015 9:15 AM REGIONAL BUSINESS MANAGER Body Mass Index 27.12 07/21/2015 9:15 AM REGIONAL BUSINESS MANAGER Plan of Treatment Health Maintenance Due Date [...] 01/21/1971 ZOSTER VACCINE (1 of 2) 01/21/2002 DEPRESSION SCREENING 06/06/2024 COVID-19 VACCINE ( - 2024-2 6 season) 2025 INFLUENZA VACCINE (#1) 2025 Respiratory Syncytial Virus (RSV) Vaccine Pt: [...] HEPATITIS C ANTIBODY Routine 06/12/2015 10:48 AM REGIONAL BUSINESS MANAGER from Last 3 Months or Most Recently Relevant to Health Maintenance Results * HEPATITIS C ANTIBODY (06/12/2015 10:48 AM REGIONAL BUSINESS MANAGER) Hepatitis C Antibody [facility]-react [facility] Comment: Hepatitis C Antibody screen indicates no serologic evidence of past or current infection with Hepatitis C Virus. Patients with unexplained liver disease who are immunocompromised or suspected of having acute Hepatitis C infection may benefit from Nucleic Acid Test (COLE) for Hepatitis C Viral RNA to confirm Hepatitis C status. Blood specimen (specimen) BLOOD SPECIMEN / Unknown 06/12/2015 10:48 AM REGIONAL BUSINESS MANAGER 06/12/2015 11:02 AM REGIONAL BUSINESS MANAGER us Joshua Burnett MD LAB - CHEMISTRY ORDERABLES Ericka norwood Result [facility] [address] [phone] from Last 3 Months or Most Recently Relevant to Health Maintenance Care Teams Barrel And Receiver Aligner Relationship Specialty Start Date End Date Gato Rose MD [address] [place] [address] PCP - General 02/10/12
--- OUTSIDE RECORDS SUMMARY | 2025-05-25 20:15 | XMS_ITS | Clinical Summary ---
Author Organization [facility] Address [address] [place] [address] Care Team Providers Care Marine Service Manager Name Role Phone Unavailable Primary Care Provider Unavailabl e Social History Tobacco Use Types Packs/Day Years Used Date Smoking Tobacco: Never Assessed Comments Unknown Sex and Gender Information Value Date Recorded Sex Assigned at Not on file Legal Sex Female 7:23 PM CDT Gender Identity Not on file Sexual Orientation Not on file Plan of Treatment Health Maintenance Due Date Last Done Comments Colorectal Cancer Screening Colonoscopy (10 Years) 1950 Hepatitis C 01/21/1970 DTaP, Tdap and Td Vaccines ( 1 - Tdap) 01/21/1971 Mammogram Screening 1992 Pneumococcal Vaccine: 50+ Ye ars (1 of 1 - PCV) 01/21/2002 Zoster Vaccines (1 of 2) 01/21/2002 Dexa Scan (General) 01/21/2017 COVID-19 Vaccine ( - 2024-2 6 season) 2025 Influenza Adult (#1) 2025 RSV Immunization or 60+ Years (1 - 1-dose 75+ series) 01/21/2027 Hepatitis A Vaccines Aged Out No long er eligible based on patient's age to complete this topic Meningococcal B Vaccine Aged Out No l onger eligible based on patient's age to complete this topic Meningococcal Vaccine Aged Out No jos benjamin eligible based on patient's age to complete this topic RSV Immunizations Under 20 Months Aged Out No longer eligible based on patient's age to complete this topic
--- OUTSIDE RECORDS SUMMARY | 2025-05-25 20:15 | XMS_ITS | Clinical Summary ---
Author Organization [facility] [address] Address [address] [place] [address] Care Team Providers Care Principal Law Clerk Name Role Phone Gato Rose MD Primary Care Provider [phone] Allergies Active Allergy Reactions Criticality Noted Date Comments Aspirin Other (See comments) Low 01/26/2018 Munoz stomach Medications aspirin 81 mg tablet take 1 tablet (81MG) by oral route every day 0 1 Active tiotropium (SPIRIVA WITH HANDIHALER) 18 mcg per inhalation capsule inhale 1 capsule (18MCG) by inhalation route every day 0 3 Active rOPINIRole (REQUIP) 2 mg tablet Take 1 tablet (2 mg total) by mouth nightly Active DULoxetine DR (CYMBALTA) 60 mg capsule Take 1 capsule (60 mg total) by mouth daily Active albuterol HFA (PROVENTIL HFA,VENTOLIN HFA,PROAIR HFA) 90 mcg/actuation inhaler Inhale 2 puffs every 6 (six) hours as needed 3 Active celecoxib (CeleBREX) 200 mg capsule Take 1 capsule (200 mg total) by mouth daily 3 Active evolocumab (Repatha SureClick) 140 mg/mL pen injector Inject 1 mL (140 mg total) under the skin every 14 (fourteen) days 2 mL 11 4 Active Additional Information Patient not taking.Informant: Self, Reported on 09/26/2024 carvediloL (COREG) 25 mg tabletIndication s:Essential hypertension Take 1 tablet (25 mg total) by mouth 2 (two) times a day 180 tablet 3 4 Active atorvastatin (LIPITOR) 40 mg tablet Take 1 tablet (40 mg total) by mouth daily 30 tablet 11 5 09/27/19 26 Active amLODIPine (NORVASC) 10 mg tablet Take 1 tablet (10 mg total) by mouth daily 30 tablet 11 5 09/27/19 26 Active spironolactone (ALDACTONE) 25 mg tablet Take 1 tablet by mouth once daily 90 tablet 2 5 Active lisinopriL (PRINIVIL,ZESTRI L) 40 mg tabletIndication s:Primary hypertension Take 1 tablet by mouth twice daily 180 tablet 3 5 Active Active Problems Problem Noted Date Diagnosed Date Subclavian artery stenosis, left 01/25/2024 Dizziness 01/25/2024 Visit for wound check 04/30/2020 Cardiac pacemaker in situ 04/20/2017 Overview (06/30/2021): [employer] Assurity Dual Pacemaker Dx; Second Degree Heart Block type 2. Gen change 04/25/2020-Jeff, chronic leads 05/18/2011. Brock remote monitoring. Encounters Date Type Department Care Team Description 04/02/2025 9:00 AM CDT Ancillary Procedure [facility] [address] [place] [address] [place] [id number] Cardiac pacemaker in situ; Mobitz type 2 second degree heart block from Last 3 Months Surgical History Surgery [...] on file Legal Sex Female 10:13 AM GIZZARD SKIN REMOVER Gender Identity Not on file Sexual Orientation [...] Screening 1950 Osteoporosis Screening-Bone Density Scan 1950 Hepatitis B Screening 01/21/1970 Pneumococcal vaccine 65+ (1 of 1 - PCV) 01/21/2002 Zoster Vaccine (1 of 2) 01/21/2002 Well Visit 65+ 01/21/2017 DTaP/Tdap/Td Vaccine (2 - Td or Tdap) 01/17/2025 01/17/2015 Influenza Vaccine (#1) 2025 0, 03/06/2019, 03/23/2018, Additional history exists Fall Risk Assessment 03/02/2025 03/02/2024 Medical Devices Implanted Type Area Children'S Nursery Assistant Device Identifier Shelf Expiration Date Model / Serial / Lot Pacemaker-05/06 Implanted:05/06 (Quantity not on file) Pacemaker Chest [employer] Sceond Degree AVB ACCENT [id number] / [id number] / [employer] Device 10ml 5fr Closure Mynx Control 2 Mode Balloon Catheter [id number] - [id number] Implanted:Qty: 1 on 03/02/2024 by Miguel Kirkpatrick MD at [facility] [employer] 05/05/2024 [id number] / / [id number] Procedures Procedure Name Priority Date/Time Associated Diagnosis Comments DEVICE CHECK - REMOTE Routine 04/02/2025 10:11 AM CDT Cardiac pacemaker in situ Mobitz type 2 second degree heart block from Last 3 Months Results * DEVICE CHECK - REMOTE (04/02/2025 10:11 AM CDT) Anatomical Region Laterality Modality Other Narrative 04/04/2025 1:17 PM CDT [employer] Assurity Dual Pacemaker Dx; Second Degree Heart Block type 2. Gen change 04/25/2020-Fleissner, chronic leads 05/18/2011. Brock remote monitoring. Routine DDD Pacemaker Remote. Transmission attached. Battery status: 2.96 V , 3.7-3.9 years remaining battery life to BARBARA. Stable lead impedances, pacing and sensing thresholds. Presenting rhythm: /BILINGUAL TEACHER ASSISTANT AP-38%, BILINGUAL TEACHER ASSISTANT-> 99% No AT/AF episodes noted. 11 Ventricular high rate episodes detected, IEGM demonstrates oversensing noise. Medications: Amlodipine 10 mg, ASA 81 mg, carvedilol 25 mg, lisinopril 40 mg See scanned report. Office pacemaker follow up: 09/25/25 Derwood remote f/u 07/02/25. Sachin Lemus RN us Miguel Kirkpatrick MD [facility] PROCEDURES F inal Result from Last 3 Months Insurance [employer] MEDICARE ADVANTAGE Care Teams Principal Law Clerk Relationship Specialty Start Date End Date Gato Rose MD PCP - General 09/03/16
--- NOTE | 2025-05-25 20:31 | ED.LOWEXIN ---
HPI - Extremity Injury (Lower) General Chief Complaint: Extremity Injury, Lower Stated Complaint: left foot pain, bruise Time Seen by Provider: 05/25/25 20:04 Source: patient Mode of arrival: wheelchair Limitations: no limitations History of Present Illness HPI Narrative: This is a 75-year-old female that presents to the emergency department for left foot pain and swelling. Ongoing since earlier today. Reports some bruising to the area. No known injury. Related Data Home Medications ?Medication ?Instructions ?Recorded ?Confirmed ?Last Taken ?Type aspirin 81 mg tablet,delayed 81 mg PO HS 04/24/19 04/30/25 10/26/20 History release atorvastatin 40 mg tablet mg PO DAILY 11/07/24 04/30/25 Unknown History carvedilol 25 mg tablet mg PO DAILY 04/30/25 04/30/25 Unknown History Allergies Allergy/AdvReac Type Severity Reaction Status Date / Time codeine Allergy Mild Nausea Verified 05/25/25 17:50 Antihistamines - Alkylamine AdvReac Mild ANXIOUS/SHRUTHI Verified 05/25/25 17:50 TATED Review of Systems Review of Systems: All systems reviewed & are unremarkable except as noted in HPI and below PMFSH Past Medical History Medical History (Updated 05/25/25 @ 22:18 by Mckenna Martinez PA-C) Screening for thyroid disorder Orthostatic hypotension Screening for breast cancer Irritable bowel syndrome with mixed bowel habits Hair loss Vitamin deficiency Hypocalcemia Dermatitis Contracture of palmar fascia (Dupuytren's) Arthralgia Acute bronchitis due to other specified organisms CVID (common variable immunodeficiency) Changes in vision Dietary counseling and surveillance (11/09/16) Elevated glucose Encounter for immunization (03/23/18) Essential (primary) hypertension (10/09/18) Former smoker IgG deficiency Injury of other nerves at ankle and foot level, right leg, initial encounter Injury of other nerves at shoulder and upper arm level, right arm, initial encounter Lumbar back pain Neuropathy Ocular migraine Pain in right upper arm Screening for lipid disorders Shortness of breath Syncope and collapse Myalgia Autoimmune disorder PONV (postoperative nausea and vomiting) Depression Anxiety BEATRIZ (obstructive sleep apnea) Hyperlipidemia Hypertension CAD (coronary artery disease) Zoster BMI 27.0-27.9,adult Encounter for checking and testing of cardiac pacemaker pulse generator [battery] Restless leg syndrome Osteoarthritis SLAP tear of shoulder DJD of shoulder Rotator cuff tear Pacemaker Rotator cuff tendonitis Vision abnormalities Surgical History Surgical History Trigger finger, right ring finger Trigger finger release August 02, 2022 Trigger finger, right middle finger Right third trigger finger release October 27, 2020 H/O heart artery stent x2, 2010 History of carpal tunnel repair Family History Family History Mother Family history of malignant neoplasm Family history of malignant neoplasm of breast in first degree relative Breast cancer Leukemia Sibling Family history of lupus erythematosus Father Lung cancer Sibling No problems noted. Other Family history of lung cancer Social History Social History Smoking packs per day: 1 Smoking cigarettes per day: 20.0 Years smoked: 20 Smoking pack-years: 20.00 Smoking status: Former smoker Tobacco type: cigarettes Second hand tobacco smoke exposure: Yes Smoking end date: 06/06/11 Alcohol intake: former Alcohol use details: social drinker, 1 drink per month Substance use: never Substance use type: does not use Lack of Transportation: No Lack of Food: Never True Current Housing: I Have Housing Concerned About Future Housing: No Difficulty Paying Gas/Electric Bills: No Difficulty Paying for Meds: No Currently Unemployed: No Education: High School Diploma/GED Difficulty w/ Childcare or Family Care: No Living arrangements: with family Additional living arrangements comments: Occupation/Education: retired 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 HEAD: Normocephalic, atraumatic. EYES: EOMI. EXTREMITIES: Normal range of motion. Mild edema with bruising to the left foot dorsal surface. Normal DP pulse. Normal sensation SKIN: Warm, dry, no rash. NEURO: No focal deficits. Alert and oriented x3. PSYCH: Normal mood and affect Course Vital Signs Vital signs: Vital Signs Temperature 97.5 F L 05/25/25 17:47 Pulse Rate 83 05/25/25 17:47 Respiratory Rate 20 05/25/25 17:47 Blood Pressure 144/69 H 05/25/25 17:47 Pulse Oximetry 97 05/25/25 17:47 Oxygen Delivery Room Air 05/25/25 17:47 Temperature 97.5 F L 05/25/25 17:47 Pulse Rate 83 05/25/25 17:47 Respiratory Rate 20 05/25/25 17:47 Blood Pressure 144/69 H 05/25/25 17:47 Pulse Oximetry 97 05/25/25 17:47 Oxygen Delivery Room Air 05/25/25 17:47 MDM MDM Narrative Medical decision making narrative: Patient presents the emergency department with left foot swelling, bruising, pain. Unknown of certain injury. Patient is neurovascularly intact. Left foot x-ray without acute osseous abnormalities. Patient placed in postop shoe for comfort. Has a walker at home she can use. Follow-up with PCP Differential Diagnosis Differential Diagnosis: Sprain, foot fracture Imaging Data Radiologist's impression: Left foot x-ray: No acute fracture Critical Care Time Critical Care Time Critical Care Time: No Discharge Plan Discharge Clinical Impression: Contusion of foot, left Qualifiers: Encounter type: initial encounter Qualified Code(s): S90.32XA - Contusion of left foot, initial encounter Patient Disposition: Home Condition: Stable Instructions: Contusion in Adults (ED) Additional Instructions: Return to the ER if you experience fever, redness and swelling of your extremity, numbness or any other symptoms that are concerning to you Wear EDUARDO wrap and use walker. No weight on the affected leg until able to bear weight without pain. Ice and elevate extremity. Pain medication as needed and directed. Follow up with your doctor for further care. Patient Language: Greek Prescriptions: No Action aspirin 81 mg tablet,delayed release (DR/EC) 81 mg PO HS carvedilol 25 mg tablet PO DAILY lisinopril 20 mg tablet 20 mg PO DAILY Qty: 30 0RF amlodipine 5 mg tablet 5 mg PO DAILY Qty: 30 2RF ropinirole 2 mg tablet 2 mg PO HS Qty: 60 1RF Rx Instructions: TAKE 1 TABLET BY MOUTH AT BEDTIME Linzess 72 mcg capsule 72 mcg PO DAILY Qty: 30 1RF atorvastatin 40 mg tablet PO DAILY duloxetine [Cymbalta] 60 mg capsule,delayed release(DR/EC) 60 mg PO HS Qty: 90 1RF celecoxib [Celebrex] 200 mg capsule 200 mg PO DAILY Qty: 90 1RF albuterol sulfate 90 mcg/actuation HFA aerosol inhaler 2 inh inhalation Q6H PRN (Reason: shortness of breath or wheezing) Qty: 8.5 2RF gabapentin 300 mg capsule 300 mg PO QHS Qty: 30 3RF Follow-up/Referrals: Gato Rose MD [Primary Care Provider, Family Practice]
[2025-05-25 22:52] VITALS: BP 139/76; PULSE 79; RESP 16; TEMP 36.8; O2SAT 98
== END 2025-05-25 22:54 | disposition home or self-care (01) ==
PROVIDERS: Emergency Provider Physician Assistant; PCP Family Medicine
DX: S90.32XA Contusion of left foot, initial encounter (principal); I10 Essential (primary) hypertension; D83.9 Common variable immunodeficiency, unspecified; D80.3 Selective deficiency of immunoglobulin G [IgG] subclasses; D89.89 Other specified disorders involving the immune mechanism, not elsewhere classified; G62.9 Polyneuropathy, unspecified; M19.019 Primary osteoarthritis, unspecified shoulder; K58.2 Mixed irritable bowel syndrome; G47.33 Obstructive sleep apnea (adult) (pediatric); G25.81 Restless legs syndrome; F41.9 Anxiety disorder, unspecified; F32.A Depression, unspecified; Z95.0 Presence of cardiac pacemaker; Z95.5 Presence of coronary angioplasty implant and graft; Z87.891 Personal history of nicotine dependence; Z79.82 Long term (current) use of aspirin; Z79.899 Other long term (current) drug therapy; X58.XXXA Exposure to other specified factors, initial encounter
CPT/HCPCS: 73630; 99283